=== PATIENT | female | born 1970 | race Caucasian/White ===

== ENCOUNTER 2025-04-14 17:06 | Inpatient (IN) | payer OTHER, MEDICAID ==
[~2025-04-14] VITALS: Ht 157.5 cm; Wt 50.2 kg
[2025-04-14 17:15] VITALS: PULSE 99; RESP 17; O2SAT 98
--- NOTE | 2025-04-14 17:31 | ED.PDOC ---
GI ASSESSMENT HPI Comments 55F BIBA w/ prior MHx of Liver Transplant in 2018(not taking meds for last 2 years), ascites:SHx of hernia Sx and the c/c of generalized weakness. Pt reports on having had dizziness, palpitations and 2 syncopal episodes all during the past week associated w/ the pt standing up from a seated position. Denies any symptoms at this time. Patient denies any CP, SOB, dizziness, numbness, weakness, tingling, fever, chills, or recent fall. Chief Complaint: General Weakness Time Seen by MD: 17:30 Reviewed Notes: Nurses Notes, Medications, Allergies Allergies: Coded Allergies: No Known Drug Allergy (Unverified Allergy, Unknown, 09/26/15) Home Meds Unable to Obtain Active Prescriptions or Reported Meds Information Source: Patient Mode of Arrival: EMS Timing: Days Duration: Since onset Prehospital treatment: None Quality: None Vomitus: None Stool: Normal Severity: Moderate Recent: None Recent Hx of: None Pain Location: RLQ (tenderness) Associated sign and symptoms: None Past Medical History Past Medical History (Other): Liver Transplant in 2018(not taking meds for past 2yrs), ascites Surgical History: Hernia Repair PATHOLOGY SECRETARY History: No Pertinent PATHOLOGY SECRETARY History Family History Family History: Reviewed,noncontributory to illness, Unknown Social History Smoker: Non-Smoker Alcohol: Denies ETOH Use Drugs: Denies Drug Use Lives In: Home Constitutional: denies: chills, diaphoresis, fatigue, fever, malaise, sweats, weakness, others EENTM: denies: blurred vision, double vision, ear bleeding, ear discharge, ear drainage, ear pain, ear ringing, eye pain, eye redness, hearing loss, mouth pain, mouth swelling, nasal discharge, nose bleeding, nose congestion, nose pain, photophobia, tearing, throat pain, throat swelling, voice changes, others Respiratory: denies: cough, hemoptysis, orthopnea, SOB at rest, shortness of b reath, SOB with excertion, stridor, wheezing, others Cardiovascular: reports: palpitations, syncope; denies: chest pain, dizzy spells, diaphoresis, Dyspnea on exertion, edema, irregular heart beat, left arm pain, lightheadedness, PND, others Gastrointestinal: denies: abdomen distended, abdominal pain, blood streaked bowels, constipated, diarrhea, dysphagia, difficulty swallowing, hematemesis, melena, nausea, poor appetite, poor fluid intake, rectal bleeding, rectal pain, vomiting, others Genitourinary: denies: abnormal vagina bleeding, burning, dyspareunia, dysuria, flank pain, frequency, hematuria, incontinence, pain, , vagina discharge, urgency, others Neurological: reports: dizziness; denies: fainting, headache, left sided n umbness, left sided weakness, numbness, paresthesia, pre-existing deficit, right sided numbness, right sided weakness, seizure, speech problems, tingling, tremors, weakness, others Musculoskeletal: denies: back pain, gout, joint pain, joint swelling, muscle pain, muscle stiffness, neck pain, others Integumetry: denies: bruises, change in color, change in hair/nails, dryness, laceration, lesions, lumps, rash, wounds, others Allergic/Immunocompromised: denies: Difficulty Healing, Frequent Infections, Hives, Itching, others Hematologic/Lymphatic: denies: anemia, blood clots, easy bleeding, easy bruising, swollen glands, others Endocrine: denies: excessive hunger, excessive sweating, excessive thirst, excessive urination, flushing, intolerance to cold, intolerance to heat, unexpl ained weight gain, unexplained weight loss, others Psychiatric: denies: anxiety, bipolar disorder, depression, hopeless, panic disorder, schizophrenia, sleepless, suicidal, others All Other Systems: Reviewed and Negative Physical Exam General Appearance: Moderate Distress, Normal HEENT: Normal ENT Inspection, Pale Conjuntivae (L), Pale Conjuntivae (R), PERRL/EOMI, Pharynx Normal, TMs Normal Neck: Full Range of Motion, Non-Tender, Normal, Normal Inspection Respiratory: Chest Non-Tender, Lungs Clear, No Accessory Muscle Use, No Respiratory Distress, Normal Breath Sounds Cardiovascular: No Edema, No JVD, No Murmur, No Gallop, Normal Peripheral Pulses, Regular Rate/Rhythm Breast Exam: Deferred Gastrointestinal: No Organomegaly, Non Tender, No Pulsatile Mass, Normal Bowel Sounds, Soft Genitalia: Deferred Pelvic: Deferred Rectal: Deferred Extremities: No calf tenderness, Normal capillary refill, Normal inspection, Normal range of motion, Non-tender, No pedal edema Musculoskeletal : Apperance: Normal Neurologic: Alert, journal entry audit clerk II-XII nml as Tested, No Motor Deficits, Normal Affect, Normal Mood, No Sensory Deficits Cerebellar Function: Normal Reflexes: Normal Skin: Dry, Normal Color, Warm Peripheral Pulses: 1+ carotid (R), 1+ carotid (L) Lymphatic: No Adenopathy Was a procedure done? Was a procedure done?: No GI differential Dx Differential Diagnosis: GI hemorrhage, Inflammatory BD, Ischemic Bowel, Dehydration, Electrolyte Imbalance, Hypovolemia, Renal Failure, Anemia X-Ray, Labs, Meds, VS Vital Signs Date Time Temp Pulse Resp B/P (MAP) Pulse Ox O2 Delivery O2 Flow Rate FiO2 04/14/25 19:00 97 12 122/78 (93) 100 04/14/25 18:00 98.1 104 14 120/76 (91) 95 98.1 04/14/25 17:20 101 04/14/25 17:15 99 17 113/73 (86) 97 04/14/25 17:15 99 17 98 Room Air* 0 21 04/14/25 17:06 98.0 98 16 87/51 100 98.0 Lab Test 04/14/25 17:34 Range/Units White Blood Count 4.2 L 4.4-10.8 10^3/uL Red Blood Count 1.73 L 4.0-5.20 10^6/uL Hemoglobin 6.0 *L 12.2-16.2 g/dL Hematocrit 16.9 L 36.0-46.0 % Mean Corpuscular Volume 97.7 80.0-100.0 fL Mean Corpuscular Hemoglobin 34.7 H 28.0-32.0 pg Mean Corpuscular Hemoglobin Concent 35.5 32.0-36.0 g/dL Red Cell Distribution Width 17.8 H 11.8-14.3 % Platelet Count 283 140-450 10^3/uL Mean Platelet Volume 6.1 L 6.9-10.8 fL Neutrophils (%) (Auto) 70.8 37.0-80.0 % Lymphocytes (%) (Auto) 17.3 10.0-50.0 % Monocytes (%) (Auto) 9.7 0.0-12.0 % Eosinophils (%) (Auto) 1.7 0.0-7.0 % Basophils (%) (Auto) 0.5 0.0-2.0 % Neutrophils # (Auto) 3.0 1.6-8.6 10 ^3/uL Lymphocytes # (Auto) 0.7 0.4-5.4 10 ^3/uL Monocytes # (Auto) 0.4 0-1.3 10 ^3/uL Eosinophils # (Auto) 0.1 0-0.8 10 ^3/uL Basophils # (Auto) 0 0-0.2 10 ^3/uL Nucleated Red Blood Cells 0.1 % Prothrombin Time 11.3 9.3-11.8 sec Prothrombin Time INR 1.07 0.9-1.15 Activated Partial Thromboplast Time 25.1 24.5-34.5 SEC Sodium Level 130 L 136-145 mmol/L Potassium Level 2.9 L 3.5-5.1 mmol/L Chloride Level 90 L 98-107 mmol/L Carbon Dioxide Level 24 20-31 mmol/L Anion Gap 16 H 5-15 Blood Urea Nitrogen 14 9-23 mg/dL Creatinine 1.47 H 0.550-1.02 mg/dL Glomerular Filtration Rate Calc 42 >90 mL/min BUN/Creatinine Ratio 9.5 L 10.0-20.0 Serum Glucose 98 74-106 mg/dL Calcium Level 7.1 L 8.7-10.4 mg/dL Magnesium Level 0.6 *L 1.6-2.6 mg/dL Total Bilirubin 0.7 0.2-1.0 mg/dL Aspartate Amino Transferase (AST) 53 H 13-40 U/L Alanine Aminotransferase (ALT) 14 7-40 U/L Alkaline Phosphatase 113 46-116 U/L Troponin I High Sensitivity < 3 L </=34 ng/L Total Protein 6.2 5.7-8.2 g/dL Albumin 4.0 3.2-4.8 g/dL Current Medications Medications (Trade) Dose Ordered Sig/Edith Route Start Time Stop Time Status Last Admin Sodium Chloride 500 ml @ 500 mls/hr Q1H ONCE IV 04/14/25 17:30 04/14/25 18:29 DC 04/14/25 17:45 Potassium Bicarbonate (Klor-Con/Ef) 50 meq ONCE ONCE PO 04/14/25 18:45 04/14/25 18:46 DC 04/14/25 20:27 Magnesium Sulfate/ Dextrose 100 ml @ 100 mls/hr Q1H IV 04/14/25 18:45 04/14/25 22:44 04/14/25 20:46 X-Ray, Labs, Meds, VS Comment Course in the emergency department patient came in because of generalized weakness and pallor and very dizzy when she stands up Patient has history of liver transplant hernia abdominal hernia and also resection of small bowel CBC 4200 with 70.8% neutrophils H&H 6.0 and 16.9 platelets normal INR 1.07 CMP potassium at 2.9 Sodium at 130 Chloride at 90 GFR 42 Calcium 7.1 Magnesium 0.[address] abdomen no acute finding except for colitis Patient will be admitted for further care Time of 1ST Reevaluation: 18:00 Reevaluation 1ST: Unchanged Patient Education/Counseling: Diagnosis, Treatment, Prognosis Family Education/Counseling: No Family Present SEPSIS Sepsis Screen Date sepsis recognized/suspect: Apr 14, 2025 Time Sepsis recognized/suspect: 1716 Recent Procedure: No On Antibiotic Therapy: No Respiratory Rate >20: No Heart Rate >90: No Temp<36 C (96.8 F) or >38.3 C: No SBP <90 or MAP <65 mmHG: Yes New Acute Mental Status Change: No Is the patient on CPAP, BIPAP,: No Physician Orders Chest Two Views Routine (04/14/25 17:22) Heplock Iv (04/14/25 17:22) Claims Director (04/14/25 17:22) Blood Pressure (04/14/25 17:22) Electrocardigram (04/14/25 17:22) Ct Ab Pel With Iv Con Only (04/14/25 17:22) Type And Screen (04/14/25 18:35) Magnesium Sulfate 1gm/100ml (04/14/25 18:45) Vital Signs Date Time Temp Pulse Resp B/P (MAP) Pulse Ox O2 Delivery O2 Flow Rate FiO2 04/14/25 19:00 97 12 122/78 (93) 100 04/14/25 18:00 98.1 104 14 120/76 (91) 95 98.1 04/14/25 17:20 101 04/14/25 17:15 99 17 113/73 (86) 97 04/14/25 17:15 99 17 98 Room Air* 0 21 04/14/25 17:06 98.0 98 16 87/51 100 98.0 Laboratory Tests Test 04/14/25 17:34 White Blood Count 4.2 10^3/uL (4.4-10.8) L Medications Medications Dose Ordered Sig/Edith Route Start Time Stop Time Status Last Admin Dose Admin Magnesium Sulfate/ Dextrose 100 ml @ 100 mls/hr Q1H IV 04/14/25 18:45 04/14/25 22:44 04/14/25 20:46 Potassium Bicarbonate 50 meq ONCE ONCE PO 04/14/25 18:45 04/14/25 18:46 DC 04/14/25 20:27 Sodium Chloride 500 ml @ 500 mls/hr Q1H ONCE IV 04/14/25 17:30 04/14/25 18:29 DC 04/14/25 17:45 Departure 1 Departure Time of Disposition: 19:01 Impression: Primary Impression: Severe anemia Additional Impressions: History of liver transplant Hypokalemia Hypomagnesemia Hypocalcemia Disposition: ADMITTED INPATIENT Condition: Guarded e-Prescriptions Unable to Obtain Active Prescriptions or Reported Meds Critical Care Note Critical Care Time?: No Stability Stability form required: Yes Heart Score Heart Score: Heart Score Response (Comments) Value History N/A 0 EKG N/A 0 Age 45-64 1 Risk Factors 1 or 2 risk factors 1 Troponin Normal limit 0 Total 2 I personally scribed for ANABELL DHALIWAL MD ([email or web address]) on 04/14/25 at 17:30. Electronically submitted by Justin Casas ([email or web address]). ANABELL DHALIWAL MD Apr 14, 2025 17:30
[2025-04-14] MEDS: SODIUM CHLORIDE 0.9% 500 ML IV ONE (17:45)
[2025-04-14 17:55] LABS: Hematocrit 16.9 % (36.0-46.0); Mean Corpuscular Hemoglobin 34.7 pg (28.0-32.0); Mean Corpuscular Volume 97.7 fL (80.0-100.0); Nucleated Red Blood Cells % 0.1 %
[2025-04-14 17:59] LABS: Hemoglobin 6.0 g/dL (12.2-16.2)
[2025-04-14 18:02] LABS: Alanine Aminotransferase 14 U/L (7-40); Albumin 4.0 g/dL (3.2-4.8); Alkaline Phosphatase 113 U/L (46-116); Anion Gap 16 (5-15); BUN/Creatinine Ratio 9.5 (10.0-20.0); Blood Urea Nitrogen 14 mg/dL (9-23); Carbon Dioxide 24 mmol/L (20-31); Glucose 98 mg/dL (74-106); INR 1.07 (0.9-1.15); Partial Thromboplastin Time 25.1 SEC (24.5-34.5); Prothrombin Time 11.3 sec (9.3-11.8); Total Protein 6.2 g/dL (5.7-8.2)
[2025-04-14 18:03] LABS: Bilirubin, Total 0.7 mg/dL (0.2-1.0)
[2025-04-14 18:04] LABS: Calcium 7.1 mg/dL (8.7-10.4); Chloride 90 mmol/L (98-107); Potassium 2.9 mmol/L (3.5-5.1); Sodium 130 mmol/L (136-145)
[2025-04-14 18:07] LABS: Magnesium 0.6 mg/dL (1.6-2.6)
[2025-04-14] MEDS ORDERED: MORPHINE SULFATE INJ 2 MG/ml SYRG IV PRN (19:45)
[2025-04-14] MEDS ORDERED: NITROGLYCERIN 0.4 MG SL TAB SL PRN (19:45)
[2025-04-14] MEDS: IOHEXOL 300 MG/ML 100ML BOTTLE IJ ONE (20:20)
[2025-04-14] MEDS: POTASSIUM EFFERVESENT TAB 25 MEQ PO ONE (20:27)
[2025-04-14] MEDS: MAGNESIUM SULFATE 1GM/100ML 100 ML IV SCH (20:28)
--- NOTE | 2025-04-14 21:00 | DVH ---
Exam: CT CT AB PEL WITH IV CON ONLY History: Patient had liver transplant no med for two years Comparison Study: None TECHNIQUE: Multidetector CT of the abdomen and pelvis with IV contrast. Axial, coronal and sagittal multiplanar reformats were obtained from the axial data set by the technologist. Radiation Dose Information: CT Dose: CTDI volume is 5.07 mGy. Dose-length product is 272.39 mGy*cm FINDINGS: Minimal bibasilar atelectasis. Partially visualized heart is unremarkable. Minimal intrahepatic biliary ductal dilatation. Postsurgical changes of prior liver transplant. Otherwise, liver, spleen, pancreas and adrenal glands are unremarkable. Mild left and [id number] Right-sided renal pelviectasis. No obstructing calculus is noted. 1.7 cm right renal upper pole cyst. Urinary bladder is mildly distended. Otherwise unremarkable. Uterus and adnexa are unremarkable. Mild gastric wall thickening with mild Wall thickening of Proximal small bowel loops. Fluid-filled nondistended mid and distal small bowel loops. Appendix is not definitely visualized. Wall thickening of the ascending colon with segmental decompression of the midtransverse colon. The remainder of the large bowel is unremarkable. postsurgical changes of the bowel over the right anterior midabdomen. No evidence of intraperitoneal free air or free fluid. No evidence of aortic aneurysm or dissection. Moderate atherosclerotic calcification of the aorta and bilateral iliacs. No significant lymphadenopathy. Soft tissues are unremarkable. Partially imaged bilateral breast implants. No evidence of acute osseous abnormalities. Chronic appearing mild loss of vertebral body height of the lower thoracic spine. Diffuse demineralization. IMPRESSION: Colitis involving the ascending colon. Mild wall thickening of the stomach and proximal small bowel loops with fluid- filled nondistended mid and distal small bowel loops. Correlate for gastroenteritis. Additional findings as above.
--- NOTE | 2025-04-14 21:02 | DVH ---
CHEST RADIOGRAPH Indication: Severe anemia Technique: Frontal and lateral view of the chest was obtained Comparison: None FINDINGS: Lines and Tubes: None Lungs: Clear Pleura: No effusion. No pneumothorax. Cardiomediastinal contours: Unremarkable Bones: Unremarkable IMPRESSION: No evidence of acute disease.
--- NOTE | 2025-04-14 22:41 | DVHHP2 ---
History of Present Illness Reason for Visit: Generalized weakness History of Present Illness 55-year-old female presents for evaluation of generalized weakness. The patient reports a one-week history of generalized weakness with associated dizziness, palpitations, tingling to upper and lower extremities. Patient has a history of liver transplant yet has not taken her immunosuppressant over the past two years due to not having insurance. Past Medical History Liver failure Past Surgical History Liver transplant, hernia repair Family History Noncontributory Smoke: No ALCOHOL: none Drugs: None Lives: with Family Review of Systems Review of Systems Review of systems are currently negative otherwise addressed in HPI. Allergies: Coded Allergies: No Known Drug Allergy (Unverified Allergy, Unknown, 09/26/15) Medications Current Medications Medications Dose Ordered Sig/Edith Route Start Time Stop Time Status Last Admin Dose Admin Magnesium Sulfate/ Dextrose 100 ml @ 100 mls/hr Q1H IV 04/14/25 18:45 04/14/25 22:44 04/14/25 20:46 100 MLS/HR Nitroglycerin 0.4 mg Q5MINP PRN SL 04/14/25 19:45 Morphine Sulfate 2 mg Q30M PRN IV 04/14/25 19:45 Exam Vital Signs Vital Signs Date Time Temp Pulse Resp B/P (MAP) Pulse Ox O2 Delivery O2 Flow Rate FiO2 04/14/25 21:22 98.3 95 14 118/78 (91) 96 98.3 04/14/25 19:40 Room Air* 0 21 Exam Gen: 55-year-old female in mild distress Skin: Warm, dry, normal color and texture, no rash. HEENT: Normocephalic atraumatic, mucous membranes moist and pink. Neck: Cervical and supraclavicular nodes normal without enlargement, trachea is midline, thyroid gland is normal without masses. Pulmonary: Clear to auscultation and percussion bilaterally. Cardiac: Regular rate and rhythm. No murmur Abdomen: Soft, nontender, nondistended, bowel sounds present all 4 quadrants, no guarding, no rigidity, no organomegaly. Extremities: No cyanosis, clubbing, no edema Neuro: Cranial nerves II through XII grossly intact, normal affect and speech, no focal motor deficits. Labs/Xrays ORDERING PHYSICIAN: ANABELL DHALIWAL MD PROCEDURE(s): ABPLIV - CT AB PEL WITH IV CON ONLY REASON: Patient had liver transplant no med for two years ORDER NUMBER(s): [id number], ACCESSION NUMBER(s): [id number] Exam: CT CT AB PEL WITH IV CON ONLY History: Patient had liver transplant no med for two years Comparison Study: None TECHNIQUE: Multidetector CT of the abdomen and pelvis with IV contrast. Axial, coronal and sagittal multiplanar reformats were obtained from the axial data set by the technologist. Radiation Dose Information: CT Dose: CTDI volume is 5.07 mGy. Dose-length product is 272.39 mGy*cm FINDINGS: Minimal bibasilar atelectasis. Partially visualized heart is unremarkable. Minimal intrahepatic biliary ductal dilatation. Postsurgical changes of prior liver transplant. Otherwise, liver, spleen, pancreas and adrenal glands are unremarkable. Mild left and [id number] Right-sided renal pelviectasis. No obstructing calculus is noted. 1.7 cm right renal upper pole cyst. Urinary bladder is mildly distended. Otherwise unremarkable. Uterus and adnexa are unremarkable. Mild gastric wall thickening with mild Wall thickening of Proximal small bowel loops. Fluid-filled nondistended mid and distal small bowel loops. Appendix is not definitely visualized. Wall thickening of the ascending colon with segmental decompression of the midtransverse colon. The remainder of the large bowel is unremarkable. postsurgical changes of the bowel over the right anterior midabdomen. No evidence of intraperitoneal free air or free fluid. No evidence of aortic aneurysm or dissection. Moderate atherosclerotic calcification of the aorta and bilateral iliacs. No significant lymphadenopathy. Soft tissues are unremarkable. Partially imaged bilateral breast implants. No evidence of acute osseous abnormalities. Chronic appearing mild loss of vertebral body height of the lower thoracic spine. Diffuse demineralization. IMPRESSION: Colitis involving the ascending colon. Mild wall thickening of the stomach and proximal small bowel loops with fluid- filled nondistended mid and distal small bowel loops. Correlate for gastroenteritis. Additional findings as above. RING PHYSICIAN: ANAEBLL DHALIWAL MD PROCEDURE(s): CXR2 - CHEST TWO VIEWS ROUTINE REASON: Severe anemia ORDER NUMBER(s): [id number], ACCESSION NUMBER(s): [id number] CHEST RADIOGRAPH Indication: Severe anemia Technique: Frontal and lateral view of the chest was obtained Comparison: None FINDINGS: Lines and Tubes: None Lungs: Clear Pleura: No effusion. No pneumothorax. Cardiomediastinal contours: Unremarkable Bones: Unremarkable IMPRESSION: No evidence of acute disease. Labs Test 04/14/25 17:34 Range/Units White Blood Count 4.2 L 4.4-10.8 10^3/uL Red Blood Count 1.73 L 4.0-5.20 10^6/uL Hemoglobin 6.0 *L 12.2-16.2 g/dL Hematocrit 16.9 L 36.0-46.0 % Mean Corpuscular Volume 97.7 80.0-100.0 fL Mean Corpuscular Hemoglobin 34.7 H 28.0-32.0 pg Mean Corpuscular Hemoglobin Concent 35.5 32.0-36.0 g/dL Red Cell Distribution Width 17.8 H 11.8-14.3 % Platelet Count 283 140-450 10^3/uL Mean Platelet Volume 6.1 L 6.9-10.8 fL Neutrophils (%) (Auto) 70.8 37.0-80.0 % Lymphocytes (%) (Auto) 17.3 10.0-50.0 % Monocytes (%) (Auto) 9.7 0.0-12.0 % Eosinophils (%) (Auto) 1.7 0.0-7.0 % Basophils (%) (Auto) 0.5 0.0-2.0 % Neutrophils # (Auto) 3.0 1.6-8.6 10 ^3/uL Lymphocytes # (Auto) 0.7 0.4-5.4 10 ^3/uL Monocytes # (Auto) 0.4 0-1.3 10 ^3/uL Eosinophils # (Auto) 0.1 0-0.8 10 ^3/uL Basophils # (Auto) 0 0-0.2 10 ^3/uL Nucleated Red Blood Cells 0.1 % Prothrombin Time 11.3 9.3-11.8 sec Prothrombin Time INR 1.07 0.9-1.15 Activated Partial Thromboplast Time 25.1 24.5-34.5 SEC Sodium Level 130 L 136-145 mmol/L Potassium Level 2.9 L 3.5-5.1 mmol/L Chloride Level 90 L 98-107 mmol/L Carbon Dioxide Level 24 20-31 mmol/L Anion Gap 16 H 5-15 Blood Urea Nitrogen 14 9-23 mg/dL Creatinine 1.47 H 0.550-1.02 mg/dL Glomerular Filtration Rate Calc 42 >90 mL/min BUN/Creatinine Ratio 9.5 L 10.0-20.0 Serum Glucose 98 74-106 mg/dL Calcium Level 7.1 L 8.7-10.4 mg/dL Magnesium Level 0.6 *L 1.6-2.6 mg/dL Total Bilirubin 0.7 0.2-1.0 mg/dL Aspartate Amino Transferase (AST) 53 H 13-40 U/L Alanine Aminotransferase (ALT) 14 7-40 U/L Alkaline Phosphatase 113 46-116 U/L Troponin I High Sensitivity < 3 L </=34 ng/L Total Protein 6.2 5.7-8.2 g/dL Albumin 4.0 3.2-4.8 g/dL SEPSIS Sepsis Screen Date sepsis recognized/suspect: Apr 14, 2025 Time Sepsis recognized/suspect: 1939 Recent Procedure: No On Antibiotic Therapy: No Respiratory Rate >20: No Heart Rate >90: Yes Temp<36 C (96.8 F) or >38.3 C: No SBP <90 or MAP <65 mmHG: No New Acute Mental Status Change: No Is the patient on CPAP, BIPAP,: No Physician Orders Chest Two Views Routine (04/14/25 17:22) Heplock Iv (04/14/25 17:22) Hand Coper (04/14/25 17:22) Blood Pressure (04/14/25 17:22) Electrocardigram (04/14/25 17:22) Ct Ab Pel With Iv Con Only (04/14/25 17:22) Type And Screen (04/14/25 18:35) Magnesium Sulfate 1gm/100ml (04/14/25 18:45) Admit (04/14/25 19:34) Nitroglycerin Sublingual (Ntrostat Subli (04/14/25 19:45) Morphine Sulfate Injection (04/14/25 19:45) Stat Ekg For Chest Pain (04/14/25 19:34) Notify Of Changes From Base (04/14/25 19:34) Examining Officer For 24 Hours (04/14/25 19:34) Emergency Dysrhythmia Protocol (04/14/25 19:34) Rhythm Strips Once Every Shift (04/14/25 19:34) Oxygen By Nasal Cannula (04/14/25 19:34) Vital Signs Date Time Temp Pulse Resp B/P (MAP) Pulse Ox O2 Delivery O2 Flow Rate FiO2 04/14/25 21:22 98.3 95 14 118/78 (91) 96 98.3 04/14/25 19:40 Room Air* 0 21 04/14/25 19:00 97 12 122/78 (93) 100 04/14/25 18:00 98.1 104 14 120/76 (91) 95 98.1 04/14/25 17:20 101 04/14/25 17:15 99 17 113/73 (86) 97 04/14/25 17:15 99 17 98 Room Air* 0 21 04/14/25 17:06 98.0 98 16 87/51 100 98.0 Laboratory Tests Test 04/14/25 17:34 White Blood Count 4.2 10^3/uL (4.4-10.8) L Medications Medications Dose Ordered Sig/Edith Route Start Time Stop Time Status Last Admin Dose Admin Magnesium Sulfate/ Dextrose 100 ml @ 100 mls/hr Q1H IV 04/14/25 18:45 04/14/25 22:44 04/14/25 20:46 100 MLS/HR Potassium Bicarbonate 50 meq ONCE ONCE PO 04/14/25 18:45 04/14/25 18:46 DC 04/14/25 20:27 50 MEQ Sodium Chloride 500 ml @ 500 mls/hr Q1H ONCE IV 04/14/25 17:30 04/14/25 18:29 DC 04/14/25 17:45 500 MLS/HR Assessment/Plan Assessment/Plan Assessment Symptomatic anemia Hypotension Electrolyte imbalance Plan Admit the patient to Med surge to the hospitalist Transfuse 2 units of packed red cells GI consultation Replete electrolytes Continue treatment per orders. Plan discussed with: Patient My Orders Orders - MYRA DASH Procedure Category Date Status Time Admit ADMIT 04/14/25 Transmitted 19:34 Nitroglycerin PHA 04/14/25 In Process Sublingual (Ntrostat 19:45 Morphine Sulfate PHA 04/14/25 In Process Injection 19:45 Stat Ekg For Chest THI 04/14/25 In Process Pain 19:34 Notify Md Of Changes B[facility] 04/14/25 In Process From Base 19:34 Examining Officer For BANNER 04/14/25 In Process 24 Hours 19:34 Emergency Dysrhythmia [facility] 04/14/25 In Process Protocol 19:34 Rhythm Strips Once [facility]ANNER 04/14/25 In Process Every Shift 19:34 Oxygen By Nasal 04/14/25 Transmitted Cannula 19:34 Date of Service: Apr 14, 2025 Billing Provider: MYRA DASH Common Visit Codes: [id number] INP/OBS CARE (MOD) MYRA DASH Apr 14, 2025 22:41
[2025-04-14 22:46] VITALS: BP 141/94; PULSE 96; RESP 13; TEMP 98.4
[2025-04-14 23:07] VITALS: BP 125/80; PULSE 93; RESP 13; TEMP 98.5
[2025-04-15] VITALS (13 sets, daily range): BP systolic 92–166; BP diastolic 56–104; PULSE 69–100; RESP 15–20; TEMP 97.6–98.6; O2SAT 97–100
[2025-04-15 11:42] LABS: Hematocrit 28.2 % (36.0-46.0); Hemoglobin 9.8 g/dL (12.2-16.2); Mean Corpuscular Hemoglobin 32.7 pg (28.0-32.0); Mean Corpuscular Volume 94.3 fL (80.0-100.0); Nucleated Red Blood Cells % 0.0 %
[2025-04-15 11:55] LABS: Anion Gap 12 (5-15); Carbon Dioxide 26 mmol/L (20-31)
[2025-04-15 11:58] LABS: Calcium 7.2 mg/dL (8.7-10.4); Chloride 94 mmol/L (98-107); Potassium 3.5 mmol/L (3.5-5.1); Sodium 132 mmol/L (136-145)
[2025-04-15 12:00] LABS: BUN/Creatinine Ratio 7.9 (10.0-20.0); Blood Urea Nitrogen 9 mg/dL (9-23); Glucose 106 mg/dL (74-106)
[2025-04-15 12:01] LABS: Magnesium 2.0 mg/dL (1.6-2.6)
[2025-04-15] MEDS: MORPHINE SULFATE INJ 2 MG/ml SYRG IV ONE (12:44)
--- NOTE | 2025-04-15 12:51 | DVHINCON2 ---
GI Consult Consult Note GI consult note Date of Consultation: 04/15/2025 Chief Complaint: Severe anemia Referring Physician: Malro ELLIS H&P: 55-year-old female admitted for evaluation of generalized weakness. 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 Patient has history of anemia and has blood transfusions in 2018. Status post EGD colonoscopy in 2018 with banding of varices Patient admits to drinking alcohol again, heavy per patient, quit one-week ago Last menstrual cycle when patient was 41 years old Past Medical History: Liver cirrhosis secondary to alcohol use Past Surgical History: Liver transplant, hernia repair Social History: NO smoking,+ heavy drinking ETOH Family History: Noncontributory Review of Systems: Constitutional: no fever, chill, weight loss HEENT: Headache Heart: no chest pain, no chest pressure Lung: no cough, no dyspnea with exertion Abdomen: see HPI Physical exam: General: NAD, AAOX3 Chest: lung bragg clear to auscultation Heart: RRR, no murmur Abdomen: non-distended, no tenderness to palpation, +BS Labs: Labs Test 04/15/25 12:15 04/15/25 11:00 04/14/25 17:34 Range/Units White Blood Count 3.5 L 4.4-10.8 10^3/uL Red Blood Count 2.99 L 4.0-5.20 10^6/uL Hemoglobin 9.8 #L 12.2-16.2 g/dL Hematocrit 28.2 #L 36.0-46.0 % Mean Corpuscular Volume 94.3 80.0-100.0 fL Mean Corpuscular Hemoglobin 32.7 H 28.0-32.0 pg Mean Corpuscular Hemoglobin Concent 34.7 32.0-36.0 g/dL Red Cell Distribution Width 16.4 H 11.8-14.3 % Platelet Count 219 140-450 10^3/uL Mean Platelet Volume 6.0 L 6.9-10.8 fL Neutrophils (%) (Auto) 72.8 37.0-80.0 % Lymphocytes (%) (Auto) 14.9 10.0-50.0 % Monocytes (%) (Auto) 10.6 0.0-12.0 % Eosinophils (%) (Auto) 1.1 0.0-7.0 % Basophils (%) (Auto) 0.6 0.0-2.0 % Neutrophils # (Auto) 2.6 1.6-8.6 10 ^3/uL Lymphocytes # (Auto) 0.5 0.4-5.4 10 ^3/uL Monocytes # (Auto) 0.4 0-1.3 10 ^3/uL Eosinophils # (Auto) 0 0-0.8 10 ^3/uL Basophils # (Auto) 0 0-0.2 10 ^3/uL Nucleated Red Blood Cells 0.0 % Sodium Level 132 L 136-145 mmol/L Potassium Level 3.5 3.5-5.1 mmol/L Chloride Level 94 L 98-107 mmol/L Carbon Dioxide Level 26 20-31 mmol/L Anion Gap 12 5-15 Blood Urea Nitrogen 9 9-23 mg/dL Creatinine 1.14 H 0.550-1.02 mg/dL Glomerular Filtration Rate Calc 58 >90 mL/min BUN/Creatinine Ratio 7.9 L 10.0-20.0 Serum Glucose 106 74-106 mg/dL Calcium Level 7.2 L 8.7-10.4 mg/dL Magnesium Level 2.0 # 1.6-2.6 mg/dL Prothrombin Time 11.3 9.3-11.8 sec Prothrombin Time INR 1.07 0.9-1.15 Activated Partial Thromboplast Time 25.1 24.5-34.5 SEC Total Bilirubin 0.7 0.2-1.0 mg/dL Aspartate Amino Transferase (AST) 53 H 13-40 U/L Alanine Aminotransferase (ALT) 14 7-40 U/L Alkaline Phosphatase 113 46-116 U/L Troponin I High Sensitivity < 3 L </=34 ng/L Total Protein 6.2 5.7-8.2 g/dL Albumin 4.0 3.2-4.8 g/dL Imaging: CT abdomen pelvis IMPRESSION: Colitis involving the ascending colon. Mild wall thickening of the stomach and proximal small bowel loops with fluid- filled nondistended mid and distal small bowel loops. Correlate for gastroenteritis. Additional findings as above. Assessment: Severe anemia Status post liver transplant Liver cirrhosis Heavy alcohol use Noncompliant with medications Diarrhea Possible gastroenteritis Abnormal findings on CT possible colitis Plan: Discussed with Dr. Gonzales Monitor hemoglobin transfuse if hemoglobin less than seven Protonix Stool for occult blood, WBC, bacterial culture, C diff Flagyl IV DC alcohol discussed extensively Stressed importance of follow-up with liver transplant team at [place] We will continue to monitor patient Thank you for this consult Date of Service: Apr 15, 2025 Billing Provider: JENNIFER JUNG Common Visit Codes: CONSULT ONLY Consultation Codes: [id number] CONSULT <60MIN JENNIFER JUNG Apr 15, 2025 12:51
--- NOTE | 2025-04-15 14:46 | DVHPN2 ---
Reviewed: Care Plan, H&P, Labs, Medications, Previous Orders, Radiology Changes from previous H/P or p: No Changes Objective Vitals Vital Signs Date Time Temp Pulse Resp B/P (MAP) Pulse Ox O2 Delivery O2 Flow Rate FiO2 04/15/25 12:44 85 16 166/104 04/15/25 09:00 98.0 100 98.0 04/15/25 08:00 Room Air* 0 21 Intake/Output Intake and Output 04/15/25 06:59 Intake Total 1700 ml Output Total 200 ml Balance 1500 ml Intake IV Total 200 ml Blood Product 600 ml Packed Cells 600 ml Other 300 ml Output Urine Total 200 ml Medications Current Medications Medications Dose Ordered Sig/Edith Route Start Time Stop Time Status Last Admin Dose Admin Nitroglycerin 0.4 mg Q5MINP PRN SL 04/14/25 19:45 Morphine Sulfate 2 mg Q30M PRN IV 04/14/25 19:45 Metronidazole 100 ml @ 100 mls/hr Q8HR IV 04/15/25 14:00 UNV Laboratory Results Laboratory Tests 04/15/25 11:00 Chemistry Test 04/14/25 17:34 04/15/25 11:00 Albumin 4.0 g/dL (3.2-4.8) Calcium Level 7.1 mg/dL (8.7-10.4) L 7.2 mg/dL (8.7-10.4) L Magnesium Level 0.6 mg/dL (1.6-2.6) *L 2.0 mg/dL (1.6-2.6) # Total Protein 6.2 g/dL (5.7-8.2) Coagulation Test 04/14/25 17:34 Prothrombin Time 11.3 sec (9.3-11.8) Prothrombin Time INR 1.07 (0.9-1.15) Activated Partial Thromboplast Time 25.1 SEC (24.5-34.5) LFT Test 04/14/25 17:34 Alanine Aminotransferase (ALT) 14 U/L (7-40) Alkaline Phosphatase 113 U/L (46-116) Aspartate Amino Transferase (AST) 53 U/L (13-40) H Total Bilirubin 0.7 mg/dL (0.2-1.0) Labs and/or images reviewed: Labs reviewed by me, Image(s) reviewed by me Assessment/Plan Assessment/Plan Acute generalized weakness Severe symptomatic anemia hemoglobin 6.0 improved to 9.8 after 2 units RBC transfusion, GI consult appreciated stool for occult blood neg History of cirrhosis of liver status post liver transplant Acute hypokalemia potassium 2.9: Replace potassium Hypomagnesemia magnesium 0.6 improved to 2.0 after Mag replacement Acute Colitis: Arnel Mayo Time spent 55 minutes RN Leslie at bed side Plan discussed with: Patient Date of Service: Apr 15, 2025 Billing Provider: JAMIE JUNG MD Common Visit Codes: [id number] INP/OBS CARE(HIGH) JAMIE JUNG MD Apr 15, 2025 14:46
[2025-04-15] MEDS: MAGNESIUM SULFATE 1GM/100ML 100 ML IV SCH (16:04)
[2025-04-15] MEDS: POTASSIUM EFFERVESENT TAB 25 MEQ PO ONE (16:05)
[2025-04-16] VITALS (8 sets, daily range): BP systolic 118–144; BP diastolic 80–92; PULSE 72–93; RESP 16–17; TEMP 97.7–99; O2SAT 96–100
[2025-04-16 06:54] LABS: Hematocrit 27.2 % (36.0-46.0); Hemoglobin 9.6 g/dL (12.2-16.2); Mean Corpuscular Hemoglobin 32.8 pg (28.0-32.0); Mean Corpuscular Volume 93.4 fL (80.0-100.0); Nucleated Red Blood Cells % 0.3 %
[2025-04-16 07:34] LABS: Alanine Aminotransferase 19 U/L (7-40); Albumin 3.6 g/dL (3.2-4.8); Alkaline Phosphatase 112 U/L (46-116); Anion Gap 11 (5-15); BUN/Creatinine Ratio 5.9 (10.0-20.0); Carbon Dioxide 27 mmol/L (20-31); Glucose 96 mg/dL (74-106); Potassium 3.9 mmol/L (3.5-5.1); Total Protein 5.8 g/dL (5.7-8.2)
[2025-04-16 07:35] LABS: Bilirubin, Total 0.6 mg/dL (0.2-1.0)
[2025-04-16 07:38] LABS: Blood Urea Nitrogen 6 mg/dL (9-23); Calcium 7.8 mg/dL (8.7-10.4); Chloride 97 mmol/L (98-107); Sodium 135 mmol/L (136-145)
--- NOTE | 2025-04-16 10:47 | DVHPN2 ---
Reviewed: Care Plan, H&P, Labs, Medications, Previous Orders, Radiology Changes from previous H/P or p: No Changes Objective Vitals Vital Signs Date Time Temp Pulse Resp B/P (MAP) Pulse Ox O2 Delivery O2 Flow Rate FiO2 04/16/25 08:59 97.7 78 17 139/88 (105) 99 97.7 04/15/25 20:00 Room Air* 0 21 Intake/Output Intake and Output 04/16/25 07:00 Intake Total 2025 ml Balance 2025 ml Intake Oral 1475 ml IV Total 550 ml # Voids 6 # Bowel Movements 4 Medications Current Medications Medications Dose Ordered Sig/Edith Route Start Time Stop Time Status Last Admin Dose Admin Nitroglycerin 0.4 mg Q5MINP PRN SL 04/14/25 19:45 Morphine Sulfate 2 mg Q30M PRN IV 04/14/25 19:45 Metronidazole 100 ml @ 100 mls/hr Q8HR IV 04/15/25 14:00 04/16/25 05:03 100 MLS/HR Ceftriaxone Sodium 50 ml @ 100 mls/hr DAILY@09 IV 04/16/25 09:00 04/16/25 08:52 100 MLS/HR Laboratory Results Laboratory Tests 04/16/25 06:21 Chemistry Test 04/15/25 11:00 04/16/25 06:21 Calcium Level 7.2 mg/dL (8.7-10.4) L 7.8 mg/dL (8.7-10.4) L Magnesium Level 2.0 mg/dL (1.6-2.6) # Albumin 3.6 g/dL (3.2-4.8) Total Protein 5.8 g/dL (5.7-8.2) LFT Test 04/16/25 06:21 Alanine Aminotransferase (ALT) 19 U/L (7-40) Alkaline Phosphatase 112 U/L (46-116) Aspartate Amino Transferase (AST) 70 U/L (13-40) H Total Bilirubin 0.6 mg/dL (0.2-1.0) Labs and/or images reviewed: Labs reviewed by me, Image(s) reviewed by me Assessment/Plan Assessment/Plan Acute generalized weakness Severe symptomatic anemia hemoglobin 6.0 improved to 9.8 after 2 units RBC transfusion, GI consult appreciated stool for occult blood neg History of cirrhosis of liver status post liver transplant Acute hypokalemia potassium 2.9: Improved to 3.9 after potassium replacement Hypomagnesemia magnesium 0.6 improved to 2.0 after Mag replacement Acute Colitis: Rocephin Flagyl Time spent 55 minutes TESSA Burnett at bed side Plan discussed with: Patient My Orders Orders - JAMIE JUNG MD Procedure Category Date Status Time Ceftriaxone 1gm/50ml PHA 04/16/25 In Process (Rocephin) 09:00 Complete Blood Count LAB 04/17/25 Verified 04:00 Comprehensive LAB 04/17/25 Verified Metabolic Panel 04:00 Date of Service: Apr 16, 2025 Billing Provider: JAMIE JUNG MD Common Visit Codes: [id number] INP/OBS CARE(HIGH) JAMIE JUNG MD Apr 16, 2025 10:47
[2025-04-16] MEDS: HYDROcodone-ACET 5/325MG TAB PO PRN (12:19)
--- NOTE | 2025-04-16 17:17 | DVHPN2 ---
Progress Note Date Seen: Apr 16, 2025 Resident Creating Document: JENY COLLINS RESIDENT Medical Necessity Reason Pt with a Central, PICC or Fol: No Subjective Patient reports: No new complaints, Feels better Objective vital signs Vital Sign Date Time Temp Pulse Resp B/P (MAP) Pulse Ox O2 Delivery O2 Flow Rate FiO2 04/16/25 16:34 98.9 81 17 133/92 (106) 100 98.9 04/16/25 08:00 Room Air* 0 21 Total Intake and Output 04/15/25 04/15/25 04/16/25 15:00 23:00 07:00 Intake Total 1050 ml 975 ml Balance 1050 ml 975 ml medications Current Medications Medications Dose Ordered Sig/Edith Route Start Time Stop Time Status Last Admin Dose Admin Nitroglycerin 0.4 mg Q5MINP PRN SL 04/14/25 19:45 Morphine Sulfate 2 mg Q30M PRN IV 04/14/25 19:45 Metronidazole 100 ml @ 100 mls/hr Q8HR IV 04/15/25 14:00 04/16/25 14:02 100 MLS/HR Ceftriaxone Sodium 50 ml @ 100 mls/hr DAILY@09 IV 04/16/25 09:00 04/16/25 08:52 100 MLS/HR Acetaminophen/ Hydrocodone Bitart 1 tab Q6HPRN PRN PO 04/16/25 12:00 04/16/25 12:19 1 TAB Examination Patient lying in bed, in no acute distress General: Well-built, afebrile, palor, mucosae are moist Cardiovascular: Regular S1 and S2. No murmurs, gallops or rubs. No JVD elevation. No pedal edema Respiratory: Normal B/L air entry on room air. Clear lung sounds on auscultation Abdomen: Soft, nontender, nondistended, normoactive bowel sounds, no rebound tenderness, no organomegaly, no masses Genitourinary: Deferred MSK/skin: Mobilizes 4 limbs. Skin is dry and warm laboratory and microbiology Laboratory Tests 04/16/25 06:21 Test 04/16/25 06:21 Range/Units Serum Glucose 96 74-106 mg/dL Microbiology Date/Time Source Procedure Growth Status 04/15/25 12:15 Stool Stool Culture - Preliminary Resulted 04/15/25 12:15 Stool Shiga Toxin I & II Pending Resulted Labs and/or images reviewed: Labs reviewed by me, Image(s) reviewed by me Problem List/Assessment/Plan Problem List/Assessment/Plan Severe anemia status post blood transfusion Status post liver transplant Liver cirrhosis Heavy alcohol use Noncompliant with medications Diarrhea Possible gastroenteritis Acute kidney injury CT abdomen shows Colitis involving the ascending colon.Mild wall thickening of the stomach and proximal small bowel loops with fluid-filled nondistended mid and distal small bowel loops. Correlate for gastroenteritis. Plan: Recommendation Status post 2 packed RBC transfusion. Monitor hemoglobin transfuse if hemoglobin less than seven Protonix 40 mg p.o. daily Stool occult negative, stool WBC negative, prelim stool culture negative DC alcohol discussed extensively Stressed importance of follow-up with liver transplant team at [place] . Plan discussed with patient in which all questions have been answered Case discussed Dr. Gonzales Plan discussed with: Patient CC Plasma Assessment Blood Product Administration S: [id number] JENY COLLINS RESIDENT Apr 16, 2025 17:17
[2025-04-16] MEDS: PANTOPRAZOLE 40 MG TAB PO ONE (17:50)
[2025-04-17 01:00] VITALS: BP 147/94; PULSE 71; RESP 16; TEMP 97.9; O2SAT 100
[2025-04-17 05:00] VITALS: BP 152/92; PULSE 71; RESP 16; TEMP 98.1; O2SAT 99
[2025-04-17] MEDS: PANTOPRAZOLE 40 MG TAB PO SCH (05:58)
[2025-04-17 06:29] LABS: Hematocrit 25.7 % (36.0-46.0); Hemoglobin 9.1 g/dL (12.2-16.2); Mean Corpuscular Hemoglobin 33.1 pg (28.0-32.0); Mean Corpuscular Volume 93.4 fL (80.0-100.0); Nucleated Red Blood Cells % 0.2 %
[2025-04-17 06:46] LABS: Alanine Aminotransferase 13 U/L (7-40); Albumin 3.5 g/dL (3.2-4.8); Alkaline Phosphatase 103 U/L (46-116); Anion Gap 9 (5-15); Carbon Dioxide 28 mmol/L (20-31); Glucose 83 mg/dL (74-106); Magnesium 2.1 mg/dL (1.6-2.6); Potassium 4.1 mmol/L (3.5-5.1)
[2025-04-17 06:47] LABS: Bilirubin, Total 0.5 mg/dL (0.2-1.0)
[2025-04-17 06:48] LABS: BUN/Creatinine Ratio 5.0 (10.0-20.0); Blood Urea Nitrogen < 5 mg/dL (9-23); Calcium 8.5 mg/dL (8.7-10.4); Chloride 98 mmol/L (98-107); Sodium 135 mmol/L (136-145); Total Protein 5.6 g/dL (5.7-8.2)
[2025-04-17 08:00] VITALS: RESP 18
[2025-04-17] MEDS ORDERED: FERR-7 PO (08:30)
[2025-04-17] MEDS ORDERED: PANT40T PO (08:30)
[2025-04-17] MEDS ORDERED: LEVO500T91 PO (08:31)
[2025-04-17] MEDS ORDERED: METR-344 PO (08:31)
--- NOTE | 2025-04-17 08:32 | DVHPN2 ---
Reviewed: Care Plan, H&P, Labs, Medications, Previous Orders, Radiology Changes from previous H/P or p: No Changes Objective Vitals Vital Signs Date Time Temp Pulse Resp B/P (MAP) Pulse Ox O2 Delivery O2 Flow Rate FiO2 04/17/25 05:00 98.1 71 16 152/92 (112) 99 98.1 04/16/25 20:00 Room Air* 0 21 Intake/Output Intake and Output 04/17/25 07:00 Intake Total 2030 ml Balance 2030 ml Intake Oral 1880 ml IV Total 150 ml # Voids 6 # Bowel Movements 2 Medications Current Medications Medications Dose Ordered Sig/Edith Route Start Time Stop Time Status Last Admin Dose Admin Nitroglycerin 0.4 mg Q5MINP PRN SL 04/14/25 19:45 Morphine Sulfate 2 mg Q30M PRN IV 04/14/25 19:45 Metronidazole 100 ml @ 100 mls/hr Q8HR IV 04/15/25 14:00 04/17/25 05:59 100 MLS/HR Ceftriaxone Sodium 50 ml @ 100 mls/hr DAILY@09 IV 04/16/25 09:00 04/16/25 08:52 100 MLS/HR Acetaminophen/ Hydrocodone Bitart 1 tab Q6HPRN PRN PO 04/16/25 12:00 04/16/25 12:19 1 TAB Pantoprazole Sodium 40 mg DAILY@0600 PO 04/17/25 06:00 04/17/25 05:58 40 MG Laboratory Results Laboratory Tests 04/17/25 04:35 Chemistry Test 04/17/25 04:35 Albumin 3.5 g/dL (3.2-4.8) Calcium Level 8.5 mg/dL (8.7-10.4) L Magnesium Level 2.1 mg/dL (1.6-2.6) Total Protein 5.6 g/dL (5.7-8.2) L LFT Test 04/17/25 04:35 Alanine Aminotransferase (ALT) 13 U/L (7-40) Alkaline Phosphatase 103 U/L (46-116) Aspartate Amino Transferase (AST) 31 U/L (13-40) Total Bilirubin 0.5 mg/dL (0.2-1.0) Microbiology Microbiology Date/Time Source Procedure Growth Status 04/15/25 12:15 Stool Stool Culture - Preliminary Resulted 04/15/25 12:15 Stool Shiga Toxin I & II Pending Resulted Labs and/or images reviewed: Labs reviewed by me, Image(s) reviewed by me Assessment/Plan Assessment/Plan Acute generalized weakness Severe symptomatic anemia hemoglobin 6.0 improved to 9.8 after 2 units RBC transfusion, GI consult appreciated stool for occult blood neg History of cirrhosis of liver status post liver transplant Acute hypokalemia potassium 2.9: Improved to 3.9 after potassium replacement Hypomagnesemia magnesium 0.6 improved to 2.0 after Mag replacement Acute Colitis: Rocephin Flagyl Time spent 55 minutes We will for occult blood negative Stool cultures negative GI cleared for discharge Advised to follow up with the the liver transplant team at [place] Plan discussed with: Patient My Orders Orders - JAMIE JUNG MD Procedure Category Date Status Time Hydrocodone-Acet PHA 04/16/25 In Process 5/325mg Tab ([place] 12:00 Comprehensive LAB 04/18/25 Verified Metabolic Panel 05:00 Comprehensive LAB 04/19/25 Verified Metabolic Panel 05:00 Comprehensive LAB 04/20/25 Verified Metabolic Panel 05:00 Complete Blood Count LAB 04/18/25 Verified 05:00 Date of Service: Apr 17, 2025 Billing Provider: JAMIE JUNG MD Common Visit Codes: [id number] INP/OBS CARE(HIGH) JAMIE JUNG MD Apr 17, 2025 08:32
--- NOTE | 2025-04-17 08:36 | DVHDS2 ---
Discharge Summary Date of Admission Apr 14, 2025 at 19:34 Date of Discharge: Apr 17, 2025 Admitting Diagnosis Abdominal pain generalized weakness Wounds: None Labs/Diagnostic Data: Laboratory Results Test 04/17/25 04:35 04/15/25 12:15 04/14/25 17:34 White Blood Count 3.2 10^3/uL (4.4-10.8) Red Blood Count 2.75 10^6/uL (4.0-5.20) Hemoglobin 9.1 g/dL (12.2-16.2) Hematocrit 25.7 % (36.0-46.0) Mean Corpuscular Volume 93.4 fL (80.0-100.0) Mean Corpuscular Hemoglobin 33.1 pg (28.0-32.0) Mean Corpuscular Hemoglobin Concent 35.4 g/dL (32.0-36.0) Red Cell Distribution Width 16.6 % (11.8-14.3) Platelet Count 262 10^3/uL (140-450) Mean Platelet Volume 6.2 fL (6.9-10.8) Neutrophils (%) (Auto) 57.9 % (37.0-80.0) Lymphocytes (%) (Auto) 25.2 % (10.0-50.0) Monocytes (%) (Auto) 11.1 % (0.0-12.0) Eosinophils (%) (Auto) 4.9 % (0.0-7.0) Basophils (%) (Auto) 0.9 % (0.0-2.0) Neutrophils # (Auto) 1.9 10 ^3/uL (1.6-8.6) Lymphocytes # (Auto) 0.8 10 ^3/uL (0.4-5.4) Monocytes # (Auto) 0.4 10 ^3/uL (0-1.3) Eosinophils # (Auto) 0.2 10 ^3/uL (0-0.8) Basophils # (Auto) 0 10 ^3/uL (0-0.2) Nucleated Red Blood Cells 0.2 % Sodium Level 135 mmol/L (136-145) Potassium Level 4.1 mmol/L (3.5-5.1) Chloride Level 98 mmol/L (98-107) Carbon Dioxide Level 28 mmol/L (20-31) Anion Gap 9 (5-15) Blood Urea Nitrogen < 5 mg/dL (9-23) Creatinine 1.00 mg/dL (0.550-1.02) Glomerular Filtration Rate Calc 67 mL/min (>90) BUN/Creatinine Ratio 5.0 (10.0-20.0) Serum Glucose 83 mg/dL (74-106) Calcium Level 8.5 mg/dL (8.7-10.4) Magnesium Level 2.1 mg/dL (1.6-2.6) Total Bilirubin 0.5 mg/dL (0.2-1.0) Aspartate Amino Transferase (AST) 31 U/L (13-40) Alanine Aminotransferase (ALT) 13 U/L (7-40) Alkaline Phosphatase 103 U/L (46-116) Total Protein 5.6 g/dL (5.7-8.2) Albumin 3.5 g/dL (3.2-4.8) Stool Occult Blood Negative (Negative) Stool Occult Blood Sample #3 (Negative) Stool for White Cells None seen Prothrombin Time 11.3 sec (9.3-11.8) Prothrombin Time INR 1.07 (0.9-1.15) Activated Partial Thromboplast Time 25.1 SEC (24.5-34.5) Troponin I High Sensitivity < 3 ng/L (</=34) Other Laboratory Tests 04/17/25 04:35 Brief Hx & Hospital Course: 55-year-old with cirrhosis of liver status post liver transplant two years ago at [facility] never followed up came in complaining of generalized weakness found to have hemoglobin 6.0 improved to 9.8 after 2 units RBC transfusion GI consult by Dr. Shara Gonzales tool for occult blood negative stool cultures negative hypokalemia and hypomagnesemia resolved with replacement patient also had acute colitis treated with Rocephin and Flagyl GI cleared for discharge patient will be discharged home on Levaquin Flagyl pantoprazole iron tablets she will follow up with the liver transplant Dr[facility]erminia [facility] Consults/Reason for consult GI Dr. Shara Gonzales Operations or Procedures CT abdomen pelvis without contrast RBC transfusion Condition at Discharge: Fair Final Diagnosis/Problems List Acute generalized weakness Severe symptomatic anemia hemoglobin 6.0 improved to 9.8 after 2 units RBC transfusion, GI consult appreciated stool for occult blood neg History of cirrhosis of liver status post liver transplant Acute hypokalemia potassium 2.9: Improved to 3.9 after potassium replacement Hypomagnesemia magnesium 0.6 improved to 2.0 after Mag replacement Acute Colitis: Rocreubenn Maria Esther Discharge Disposition: Home Discharge Instruct/Medications Diet: Regular Activity: Light activity Follow Up/Referral: Continue all your previous home medications Use new medications as prescribed Follow up with your liver transplant DrHerminia at [facility] Medications: Levaquin Flagyl Pantoprazole Iron Transmitted to pharmacy Scheduled Ferrous Sulfate (Iron), 325 MG PO BID Levofloxacin Hemihydrate (Levaquin 500 Mg), 1 TAB PO DAILY Metronidazole (Flagyl), 1 TAB PO TID Pantoprazole Sodium Sesquihydr (Pantoprazole Sodium), 40 MG PO BID 35 (Time taken for discharge summary 35 mts) Discharge Statement: "Patient was advised to return to the ER or call 911 if any headaches, dizziness, shortness of breath, chest pain, abdominal pain, bleeding, fevers, or worsening of medical condition. Patient was counseled about treatment plan, medications, possible side effects, patientverbalized understanding. All questions were answered to the best of my ability. This discharge took greater then 30 minutes in planning, reviewing documentation, counseling the patient, and discussing with other team members." ASSESSMENT ASSESSMENT Hospital Course Improved marginally Assessment Acute generalized weakness Severe symptomatic anemia hemoglobin 6.0 improved to 9.8 after 2 units RBC transfusion, GI consult appreciated stool for occult blood neg History of cirrhosis of liver status post liver transplant Acute hypokalemia potassium 2.9: Improved to 3.9 after potassium replacement Hypomagnesemia magnesium 0.6 improved to 2.0 after Mag replacement Acute Colitis: Lalihishara Mayo Date of Service: Apr 17, 2025 Billing Provider: JAMIE JUNG MD Common Visit Codes: [id number] DISCH DAY >30min JAMIE JUNG MD Apr 17, 2025 08:36
[2025-04-17 09:00] VITALS: BP 137/83; PULSE 94; RESP 16; TEMP 98.6; O2SAT 100
[2025-04-17 09:10] VITALS: TEMP 37
== END 2025-04-17 09:55 | disposition home or self-care (01) | DRG 812 ==
LOC: EDBD 17:06 → ER 17:06 → OVERFLOW 19:34 → TELE-WESTW 23:29
PROVIDERS: ADMIT Family Medicine; ATTEND Family Medicine
PROC: 30233N1 Transfusion of Nonautologous Red Blood Cells into Peripheral Vein, Percutaneous Approach (ICD-10-PCS; principal; 2025-04-14)
DX: D64.9 Anemia, unspecified (principal); E83.51 Hypocalcemia; Z94.4 Liver transplant status; K52.9 Noninfective gastroenteritis and colitis, unspecified; I95.9 Hypotension, unspecified; E87.6 Hypokalemia; E83.42 Hypomagnesemia; Z91.148 Patient's other noncompliance with medication regimen for other reason; Z79.899 Other long term (current) drug therapy
CPT/HCPCS: 36415; 71046; 74177; 80048; 80053; 82270; 83735; 84484; 85025; 85048; 85610; 85730; 86850; 86900; 86901; 86920; 87045; 87427; 96360; 96361; G0378; J3490

== ENCOUNTER 2025-04-21 10:46 | Inpatient (IN) | payer MEDICAID, OTHER ==
[~2025-04-21] VITALS: Ht 157.5 cm; Wt 52.9 kg
[~2025-04-21 10:46] MED LIST: FERR-7 PO; LEVO500T91 PO; METR-344 PO; PANT40T PO
--- NOTE | 2025-04-21 11:14 | ED.PDOC ---
HPI (NEURO) HPI Comments 55y F who presents to the ED via EMS for chief complaint of generalized weakness. EMS states pt has been having weakness, nausea, shortness of breath and generalized malaise for the past few days. Pt states she was at [facility] week for similar symptoms and was hospitalized and given 2 units of blood and dx with anemia and discharged. Pt states she is having similar symptoms now and called EMS. EMS notes pt has stable vitals upon arrival and brought to the ED for further evaluation. Chief Complaint: General Weakness Time Seen by MD: 11:11 Reviewed Notes: Nurses Notes, Medications, Allergies Information Source: Patient Mode of Arrival: EMS Brought in by: EMS Severity: Moderate Dizziness/Weakness Severity: Unable to do activities Headache Severity: None Timing: Hours Duration: Since onset Prehospital treatment: None Weakness Location: Generalized Onset: At rest Circumstances: Spontaneous Symptoms: Weakness History of: Anemia Modifying factors: Nothing Associated Signs and Symptoms: Nausea, Weakness Past Medical History PAST MEDICAL HISTORY: Anemia, HTN Surgical History: Hernia Repair Surgical History (Other): liver transplant 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 ASSISTANT 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: No Pertinent TEACHER ASSISTANT History Family History Family History: Family hx of heart robles Social History Smoker: Non-Smoker Alcohol: Denies ETOH Use Drugs: Denies Drug Use Lives In: Home Constitutional: reports: malaise, weakness; denies: chills, diaphoresis, fatigue, fever, sweats, others EENTM: denies: blurred vision, double vision, ear bleeding, ear discharge, ear drainage, ear pain, ear ringing, eye pain, eye redness, hearing loss, mouth pain, mouth swelling, nasal discharge, nose bleeding, nose congestion, nose pain, photophobia, tearing, throat pain, throat swelling, voice changes, others Respiratory: reports: shortness of breath; denies: cough, hemoptysis, orthopnea, SOB at rest, SOB with excertion, stridor, wheezing, others Cardiovascular: denies: chest pain, dizzy spells, diaphoresis, Dyspnea on exertion, edema, irregular heart beat, left arm pain, lightheadedness, palpitations, PND, syncope, others Gastrointestinal: reports: nausea; denies: abdomen distended, abdominal pain, blood streaked bowels, constipated, diarrhea, dysphagia, difficulty swallowing, hematemesis, melena, poor appetite, poor fluid intake, rectal bleeding, rectal pain, vomiting, others Genitourinary: denies: abnormal vagina bleeding, burning, dyspareunia, dysuria, flank pain, frequency, hematuria, incontinence, pain, , vagina discharge, urgency, others Neurological: reports: weakness; denies: dizziness, fainting, headache, left sided numbness, left sided weakness, numbness, paresthesia, pre-existing deficit, right sided numbness, right sided weakness, seizure, speech problems, tingling, tremors, others Musculoskeletal: denies: back pain, gout, joint pain, joint swelling, muscle pain, muscle stiffness, neck pain, others Integumetry: denies: bruises, change in color, change in hair/nails, dryness, laceration, lesions, lumps, rash, wounds, others Allergic/Immunocompromised: denies: Difficulty Healing, Frequent Infections, Hives, Itching, others Hematologic/Lymphatic: denies: anemia, blood clots, easy bleeding, easy bruising, swollen glands, others Endocrine: denies: excessive hunger, excessive sweating, excessive thirst, excessive urination, flushing, intolerance to cold, intolerance to heat, unexplained weight gain, unexplained weight loss, others Psychiatric: denies: anxiety, bipolar disorder, depression, hopeless, panic disorder, schizophrenia, sleepless, suicidal, others All Other Systems: Reviewed and Negative Physical Exam General Appearance: Moderate Distress HEENT: Pale Conjuntivae (L), Pale Conjuntivae (R), Pharynx Normal, TMs Normal Neck: Full Range of Motion, Non-Tender, Normal, Normal Inspection Respiratory: Chest Non-Tender, Lungs Clear, No Accessory Muscle Use, No Respiratory Distress, Normal Breath Sounds Cardiovascular: No Edema, No JVD, No Murmur, No Gallop, Normal Peripheral Pulses, Tachycardia Breast Exam: Deferred Gastrointestinal: No Organomegaly, Non Tender, No Pulsatile Mass, Normal Bowel Sounds, Soft Genitalia: Deferred Pelvic: Deferred Rectal: Deferred Extremities: No calf tenderness, Normal capillary refill, Normal inspection, Normal range of motion, Non-tender, No pedal edema Musculoskeletal : Apperance: Normal Neurologic: Alert, stone setter apprentice II-XII nml as Tested, Motor Weakness, Normal Affect, Normal Mood, No Sensory Deficits Cerebellar Function: Normal Reflexes: Normal Skin: Dry, Pallor, Warm Lymphatic: No Adenopathy EKG EKG : Pulse Rate (adult): 114 [place]: Normal Cardiac Rhythm: ST Block: None Hypertrophy: None ST: Normal Was a procedure done? Was a procedure done?: No Differential Diagnosis (SZ) Seizure: N/A General Weakness: Anemia, Dehydration, Electrolyte imbalance, Encephalopathy, Hypoglycemia, Hypotension, Hypovolemia, TIA X-Ray, Labs, Meds, VS Vital Signs Date Time Temp Pulse Resp B/P (MAP) Pulse Ox O2 Delivery O2 Flow Rate FiO2 04/21/25 11:36 97.8 105 18 152/100 (117) 97 97.8 04/21/25 11:25 96 Room Air* 0 21 04/21/25 11:15 114 04/21/25 10:54 97.8 105 18 165/110 100 97.8 04/21/25 10:52 114 Lab Test 04/21/25 11:26 Range/Units White Blood Count 4.3 #L 4.4-10.8 10^3/uL Red Blood Count 2.75 L 4.0-5.20 10^6/uL Hemoglobin 9.1 L 12.2-16.2 g/dL Hematocrit 27.7 L 36.0-46.0 % Mean Corpuscular Volume 100.6 #H 80.0-100.0 fL Mean Corpuscular Hemoglobin 33.0 H 28.0-32.0 pg Mean Corpuscular Hemoglobin Concent 32.8 32.0-36.0 g/dL Red Cell Distribution Width 17.6 H 11.8-14.3 % Platelet Count 352 140-450 10^3/uL Mean Platelet Volume 5.6 L 6.9-10.8 fL Neutrophils (%) (Auto) 68.8 37.0-80.0 % Lymphocytes (%) (Auto) 17.9 10.0-50.0 % Monocytes (%) (Auto) 8.5 0.0-12.0 % Eosinophils (%) (Auto) 3.6 0.0-7.0 % Basophils (%) (Auto) 1.2 0.0-2.0 % Neutrophils # (Auto) 3.0 1.6-8.6 10 ^3/uL Lymphocytes # (Auto) 0.8 0.4-5.4 10 ^3/uL Monocytes # (Auto) 0.4 0-1.3 10 ^3/uL Eosinophils # (Auto) 0.2 0-0.8 10 ^3/uL Basophils # (Auto) 0.1 0-0.2 10 ^3/uL Nucleated Red Blood Cells 0.3 % Prothrombin Time Pending Prothrombin Time INR Pending Activated Partial Thromboplast Time Pending Sodium Level 132 L 136-145 mmol/L Potassium Level 3.6 3.5-5.1 mmol/L Chloride Level 102 98-107 mmol/L Carbon Dioxide Level 18 L 20-31 mmol/L Anion Gap 12 5-15 Blood Urea Nitrogen < 5 L 9-23 mg/dL Creatinine 1.35 #H 0.550-1.02 mg/dL Glomerular Filtration Rate Calc 47 >90 mL/min BUN/Creatinine Ratio 3.7 L 10.0-20.0 Serum Glucose 87 74-106 mg/dL Calcium Level 8.5 L 8.7-10.4 mg/dL PROCEDURE(s): CXRP - CHEST PORTABLE IMPRESSION: No acute cardiopulmonary disease. IV Hep-Lock was established Patient's CBC shows anemia with a hemoglobin 9.1 with a hematocrit of 27.7 The chemistry panel is within normal limits. The creatinine is 1.35 At this time, the patient is being admitted to the hospitalist The patient's CBC is at a level where she does not be transfusion at this time There is a concern that this patient is symptomatic so we are going to the patient Images Reviewed?: Images reviewed and evaluated by me Time of 1ST Reevaluation: 11:45 Reevaluation 1ST: Unchanged Patient Education/Counseling: Diagnosis, Treatment Family Education/Counseling: No Family Present Departure 1 Departure Time of Disposition: 12:26 Impression: Primary Impression: Tachycardia Additional Impressions: Severe anemia Generalized weakness Disposition: ADMITTED INPATIENT Admit to: Tele Condition: Fair Critical Care Note Critical Care Time?: No Stability Stability form required: Yes Unstable for transfer: Telemetry monitoring (Telemetry monitoring required), ED Physician Assesment (Clinical assesment) Heart Score Heart Score: Heart Score Response (Comments) Value History N/A 0 EKG N/A 0 Age N/A 0 Risk Factors N/A 0 Troponin N/A 0 Total 0 I personally scribed for LILIANE MAE MD ([email or web address]) on 04/21/25 at 11:14. Electronically submitted by Gloria CLARK). I personally scribed for LILIANE MAE MD ([email or web address]) on 04/21/25 at 11:15. Electronically submitted by Gloria Díaz ([email or web address]). I personally scribed for LILIANE MAE MD ([email or web address]) on 04/21/25 at 12:17. Electronically submitted by Gloria Díaz ([email or web address]). LILIANE MAE MD Apr 21, 2025 11:14
[2025-04-21 11:25] VITALS: O2SAT 96
[2025-04-21 12:00] LABS: Hematocrit 27.7 % (36.0-46.0); Hemoglobin 9.1 g/dL (12.2-16.2); Mean Corpuscular Hemoglobin 33.0 pg (28.0-32.0); Mean Corpuscular Volume 100.6 fL (80.0-100.0); Nucleated Red Blood Cells % 0.3 %
[2025-04-21 12:12] LABS: Chloride 102 mmol/L (98-107); Potassium 3.6 mmol/L (3.5-5.1)
--- NOTE | 2025-04-21 12:12 | DVH ---
EXAM: XY CHEST PORTABLE Indication: weakness Technique: Single frontal view of the chest was obtained Comparison: XY CHEST TWO VIEWS ROUTINE on DOS: 04/14/25 FINDINGS: Lines and Tubes: None Lungs: No focal consolidation. Pleura: No effusion. No pneumothorax. Cardiomediastinal contours: Unremarkable Bones: No acute osseous abnormality. IMPRESSION: No acute cardiopulmonary disease.
[2025-04-21 12:13] LABS: Anion Gap 12 (5-15)
[2025-04-21 12:18] LABS: Glucose 87 mg/dL (74-106)
[2025-04-21 12:20] LABS: BUN/Creatinine Ratio 3.7 (10.0-20.0); Blood Urea Nitrogen < 5 mg/dL (9-23); Calcium 8.5 mg/dL (8.7-10.4); Carbon Dioxide 18 mmol/L (20-31); Sodium 132 mmol/L (136-145)
[2025-04-21 13:19] LABS: INR 1.07 (0.9-1.15); Partial Thromboplastin Time 26.2 SEC (24.5-34.5); Prothrombin Time 11.3 sec (9.3-11.8)
[2025-04-21] MEDS: SODIUM CHLORIDE 0.9% 1,000 ML IV ONE (14:26)
[2025-04-21 15:01] LABS: Albumin 3.5 g/dL (3.2-4.8); Alkaline Phosphatase 94 U/L (46-116); Total Protein 5.7 g/dL (5.7-8.2)
[2025-04-21 15:02] LABS: Alanine Aminotransferase < 9 U/L (7-40); Bilirubin, Direct 0.2 mg/dL (<0.3); Bilirubin, Total 0.3 mg/dL (0.2-1.0)
[2025-04-21 16:22] LABS: Opiate Scree,Urine Neg (NEGATIVE); Phencyclidine Screen, Urine Neg (NEGATIVE)
[2025-04-21 16:24] LABS: Amphetamine Screen, Urine Neg (NEGATIVE); Barbiturate Scree,Urine Neg (NEGATIVE); Benzodiazephine Screen, Urine Neg (NEGATIVE); Cannabinoid Screen, Urine Neg (NEGATIVE); Cocaine Screen, Urine Neg (NEGATIVE)
[2025-04-21 16:26] LABS: Urine Protein, UAD Negative (Negative)
[2025-04-21 17:02] LABS: COVID19 ANTIGEN SOFIA FIA NEGATIVE (NEGATIVE)
--- NOTE | 2025-04-21 18:11 | DVHHPRES ---
History of Present Illness Resident Creating Document: MICHAEL HANKS RESIDENT History of Present Illness 55-year-old female with past medical history of liver disease status post liver transplant in 2018, anemia, CKD and history of previous UTI presented with complaints of generalized weakness. Patient was recently in the hospital for similar complaints where she was transfused with PRBCs as she had severe anemia. Patient was discharged recently with oral antibiotics for colitis. Patient mentioned that she has been having episodes of diarrhea after going home from the hospital, watery, 4-5 episodes per day, patient has been having progressive weakness and now she can not stand on her feet. patient mentioned that she started drinking alcohol again after liver transplant which she quit three days ago, drinks vodka every day. Patient has been smoking recently and quit three weeks ago. Patient was on tacrolimus for liver transplantation but she stopped taking because of loss of insurance, wants to follow up again with the seafood farmer for restarting tamsulosin. She mentioned associated tingling in bilateral feet. Denied any paresthesias of the face or any carpopedal spasm. She denied any complaints of hematuria or hematemesis or melena. Denied any bleeding from any other site. She mentioned associated chills and nausea, headache and dizziness. Denied any chest pain, shortness of breath. Past medical history History of liver disease (previous history of alcoholic liver disease) status post liver transplant in 2018 Anemia CKD Multiple UTIs Past surgical history Denied any recent surgery Family history Noncontributory to the above Social history patient mentioned that she started drinking alcohol again which she quit three days ago, drinks vodka every day Patient has been smoking recently and quit three weeks ago Denied any marijuana or any other drug intake Patient is getting her new PCP and does not know the name Medication history Ferrous sulfate Pantoprazole Review of Systems Review of Systems As explained in the HPI Allergies: Coded Allergies: No Known Drug Allergy (Unverified Allergy, Unknown, 09/26/15) Medications Current Medications Medications Dose Ordered Sig/Edith Route Start Time Stop Time Status Last Admin Dose Admin Ondansetron HCl 4 mg Q4HP PRN IV 04/21/25 14:00 Ceftriaxone Sodium/Dextrose 50 ml @ 50 mls/hr DAILY IV 04/22/25 10:00 Metronidazole 100 ml @ 100 mls/hr Q8HR IV 04/21/25 22:00 Exam Vital Signs Vital Signs Date Time Temp Pulse Resp B/P (MAP) Pulse Ox O2 Delivery O2 Flow Rate FiO2 04/21/25 15:28 81 15 160/95 (116) 97 04/21/25 11:36 97.8 97.8 04/21/25 11:25 Room Air* 0 21 Exam Examination General Appearance: Alert, Oriented X3, Cooperative, pale, dry tongue HEENT: EOMI Respiratory: Clear to auscultation, Normal air movement Cardiovascular: Regular rate, Normal S1, Normal S2 Abdominal: Normal bowel sounds Extremities: No cyanosis, No edema, Normal pulses, No tenderness/swelling Skin: No rashes, No breakdown Neuro: Normal speech and tone Point of care ultrasound done at bedside IVC compressibility greater than 50% with inspiration IVC size 1.83 cm Labs/Xrays Labs Test 04/21/25 15:52 04/21/25 15:46 04/21/25 14:22 04/21/25 14:20 Range/Units Urine Color Yellow Yellow Urine Clarity Clear Clear Urine pH 7.0 5.0-9.0 Urine Specific [place] 1.009 1.001-1.035 Urine Protein Negative Negative Urine Ketones Negative Negative Urine Blood Negative Negative /uL Urine Nitrite Negative Negative Urine Bilirubin Negative Negative Urine Urobilinogen Normal Negative mg/dL Urine Leukocyte Esterase Negative Negative /uL Urine RBC <1 0 - 4 /hpf Urine Microscopic WBC 1 0-5 /HPF Urine Squamous Epithelial Cells Few <5 /hpf Urine Bacteria None seen None Seen /hpf Urine Glucose Normal Normal mg/dL Urine Opiates Screen Neg NEGATIVE Urine Fentanyl Screen Neg NEGATIVE Urine Barbiturates Screen Neg NEGATIVE Urine Phencyclidine Screen Neg NEGATIVE Urine Amphetamines Screen Neg NEGATIVE Urine Benzodiazepines Screen Neg NEGATIVE Urine Cocaine Screen Neg NEGATIVE Urine Cannabinoids Screen Neg NEGATIVE SARS-CoV-2 Antigen (Rapid) Negative NEGATIVE Lactic Acid Level 1.1 0.4-2.0 mmol/L Total Bilirubin 0.3 0.2-1.0 mg/dL Direct Bilirubin 0.2 <0.3 mg/dL Aspartate Amino Transferase (AST) 25 13-40 U/L Alanine Aminotransferase (ALT) < 9 7-40 U/L Alkaline Phosphatase 94 46-116 U/L Total Protein 5.7 5.7-8.2 g/dL Albumin 3.5 3.2-4.8 g/dL Blood Gas Specimen Type Venous Blood Gas Sample Site Vbg - n/a Blood Gas Patient Temperature 37.0 Arterial Blood Date Drawn José Luis Test N/a Venous Blood pH 7.455 H 7.320-7.430 Venous Blood pCO2 at Patient Temp 31.3 L 38.0-54.0 mmHg Venous Blood pO2 at Patient Temp < 36.5 23.0-48.0 mmHg Venous Blood HCO3 21.5 L 22.0-29.0 mmol/L Venous Blood Base Excess -1.3 -2.0-3.0 mmol/L Blood Gas Modality Room air FiO2 % 21.0 Test 04/21/25 12:37 04/21/25 11:26 Range/Units Prothrombin Time 11.3 9.3-11.8 sec Prothrombin Time INR 1.07 0.9-1.15 Activated Partial Thromboplast Time 26.2 24.5-34.5 SEC White Blood Count 4.3 #L 4.4-10.8 10^3/uL Red Blood Count 2.75 L 4.0-5.20 10^6/uL Hemoglobin 9.1 L 12.2-16.2 g/dL Hematocrit 27.7 L 36.0-46.0 % Mean Corpuscular Volume 100.6 #H 80.0-100.0 fL Mean Corpuscular Hemoglobin 33.0 H 28.0-32.0 pg Mean Corpuscular Hemoglobin Concent 32.8 32.0-36.0 g/dL Red Cell Distribution Width 17.6 H 11.8-14.3 % Platelet Count 352 140-450 10^3/uL Mean Platelet Volume 5.6 L 6.9-10.8 fL Neutrophils (%) (Auto) 68.8 37.0-80.0 % Lymphocytes (%) (Auto) 17.9 10.0-50.0 % Monocytes (%) (Auto) 8.5 0.0-12.0 % Eosinophils (%) (Auto) 3.6 0.0-7.0 % Basophils (%) (Auto) 1.2 0.0-2.0 % Neutrophils # (Auto) 3.0 1.6-8.6 10 ^3/uL Lymphocytes # (Auto) 0.8 0.4-5.4 10 ^3/uL Monocytes # (Auto) 0.4 0-1.3 10 ^3/uL Eosinophils # (Auto) 0.2 0-0.8 10 ^3/uL Basophils # (Auto) 0.1 0-0.2 10 ^3/uL Nucleated Red Blood Cells 0.3 % Sodium Level 132 L 136-145 mmol/L Potassium Level 3.6 3.5-5.1 mmol/L Chloride Level 102 98-107 mmol/L Carbon Dioxide Level 18 L 20-31 mmol/L Anion Gap 12 5-15 Blood Urea Nitrogen < 5 L 9-23 mg/dL Creatinine 1.35 #H 0.550-1.02 mg/dL Glomerular Filtration Rate Calc 47 >90 mL/min BUN/Creatinine Ratio 3.7 L 10.0-20.0 Serum Glucose 87 74-106 mg/dL Calcium Level 8.5 L 8.7-10.4 mg/dL SEPSIS Sepsis Screen Date sepsis recognized/suspect: Apr 21, 2025 Time Sepsis recognized/suspect: 1055 Recent Procedure: No On Antibiotic Therapy: No Respiratory Rate >20: No Heart Rate >90: Yes Temp<36 C (96.8 F) or >38.3 C: No SBP <90 or MAP <65 mmHG: No New Acute Mental Status Change: No Is the patient on CPAP, BIPAP,: No Physician Orders Chest Portable (04/21/25 11:06) Technical Analyst (04/21/25 11:06) Blood Pressure (04/21/25 11:06) Pulse Oximetry (04/21/25 11:06) Electrocardigram (04/21/25 11:06) Electrocardigram (04/21/25 12:06) Admit (04/21/25 13:52) Allergies (04/21/25 13:52) 2 Gm Sodium Diet (04/21/25 Dinner) Ondansetron Hcl (Zofran) (04/21/25 14:00) Complete Blood Count (04/22/25 04:00) Comprehensive Metabolic Panel (04/22/25 04:00) Oxygen By Nasal Cannula (04/21/25 13:52) Stat Ekg For Chest Pain (04/21/25 13:52) Notify Of Changes From Base (04/21/25 13:52) Freight Engineer For 24 Hours (04/21/25 13:52) Emergency Dysrhythmia Protocol (04/21/25 13:52) Rhythm Strips Once Every Shift (04/21/25 13:52) Electrocardigram (04/21/25 13:52) Clostridium Difficile Toxin (04/21/25 13:52) Stool Bacterial Culture (04/21/25 13:52) Stool Occult Blood (04/21/25 13:52) Stool Wbc (04/21/25 13:52) Code Status (04/21/25 13:52) Ceftriaxone 2gm/50ml (Rocephin 2gm/50ml) (04/22/25 10:00) Metronidazole 500mg/100ml (Flagyl 500mg/ (04/21/25 22:00) Venous Blood Gas (04/21/25 14:02) Vital Signs Date Time Temp Pulse Resp B/P (MAP) Pulse Ox O2 Delivery O2 Flow Rate FiO2 04/21/25 15:28 81 15 160/95 (116) 97 04/21/25 12:00 96 13 134/90 (105) 99 04/21/25 11:36 97.8 105 18 152/100 (117) 97 97.8 04/21/25 11:25 96 Room Air* 0 21 04/21/25 11:15 114 04/21/25 10:54 97.8 105 18 165/110 100 97.8 04/21/25 10:52 114 Laboratory Tests Test 04/21/25 11:26 04/21/25 14:22 White Blood Count 4.3 10^3/uL (4.4-10.8) #L Lactic Acid Level 1.1 mmol/L (0.4-2.0) Medications Medications Dose Ordered Sig/Edith Route Start Time Stop Time Status Last Admin Dose Admin Ceftriaxone Sodium/Dextrose 50 ml @ 50 mls/hr ONCE ONCE IV 04/21/25 14:00 04/21/25 14:59 DC 04/21/25 14:30 50 MLS/HR Metronidazole 100 ml @ 100 mls/hr ONCE ONCE IV 04/21/25 14:00 04/21/25 14:59 DC 04/21/25 14:30 100 MLS/HR Sodium Chloride 1,000 ml @ 500 mls/hr Q2H ONCE IV 04/21/25 14:00 04/21/25 15:59 DC 04/21/25 14:26 500 MLS/HR Assessment/Plan Assessment/Plan Assessment/plan # intractable diarrhea, rule out C diff, likely due to colitis # generalized weakness likely due to above -IV fluids -IV antibiotics, ceftriaxone and Flagyl C diff Stool studies including stool culture #ANA on 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 -IV FLuids -Avod nephrotoxic drugs # history of liver transplant due to alcoholic liver disease -recommended to follow up with seafood farmer to resume tacrolimus # Macrocytic anemia likely due to liver disease, -ordered B12 and folate -ordered iron studies as patient is currently on iron but anemia microcytic so less likely iron-deficiency anemia # mild hyponatremia due to hypovolemia -IV fluids # non-anion gap metabolic acidosis likely due to GI losses -IV fluids -ordered venous blood gas # DVT prophylaxis We will avoid Lovenox considering her recent history of blood transfusion and anemia, if hemoglobin stable consider for tomorrow Code status discussed with the patient for greater than 21 minutes, full code Case discussion with Dr Robledo Plan discussed with: Patient, Other My Orders Orders - MICHAEL HANKS RESIDENT Procedure Category Date Status Time Admit ADMIT 04/21/25 Transmitted 13:52 Allergies THI 04/21/25 In Process 13:52 2 Gm Sodium Diet DIET 04/21/25 Transmitted Dinner Ondansetron Hcl PHA 04/21/25 In Process (Zofran) 14:00 Complete Blood Count LAB 04/22/25 Verified 04:00 Comprehensive LAB 04/22/25 Verified Metabolic Panel 04:00 Oxygen By Nasal RT 04/21/25 Transmitted Cannula 13:52 Stat Ekg For Chest [facility] 04/21/25 In Process Pain 13:52 Notify Of Changes [facility] 04/21/25 In Process From Base 13:52 Freight Engineer For [facility] 04/21/25 In Process 24 Hours 13:52 Emergency Dysrhythmia [facility] 04/21/25 In Process Protocol 13:52 Rhythm Strips Once [facility] 04/21/25 In Process Every Shift 13:52 Electrocardigram EKG 04/21/25 Logged 13:52 Clostridium Difficile [facility] 04/21/25 Logged Toxin 13:52 Stool Bacterial [facility]ANIA 04/21/25 Logged Culture 13:52 Stool Occult Blood LAB 04/21/25 Logged 13:52 Stool Wbc LAB 04/21/25 Logged 13:52 Code Status CODE 04/21/25 Transmitted 13:52 Ceftriaxone 2gm/50ml PHA 04/22/25 In Process (Rocephin 2gm/50ml) 10:00 Metronidazole PHA 04/21/25 In Process 500mg/100ml (Flagyl 22:00 Venous Blood Gas RT 04/21/25 Logged 14:02 Date of Service: Apr 21, 2025 Billing Provider: MARY ROBLEDO MD Common Visit Codes: 62029-[id number] INP/OBS CARE (HIGH) Secondary Visit Codes: 58741-[id number] CARE PLAN 30 MINUTES MICHAEL HANKS RESIDENT Apr 21, 2025 18:11 MARY ROBLEDO MD Apr 22, 2025 01:49
[2025-04-21 18:25] LABS: Iron 118.0 ug/dL (50-170)
[2025-04-21 18:32] LABS: Ferritin 956.3 ng/mL (10-291)
[2025-04-21 18:34] LABS: Total Iron Binding Capacity 212.0 ug/dL (250-425)
--- NOTE | 2025-04-21 18:53 | ECG ---
[facility] Test Date: 2025-04-21 Test Time: 10:52:41 Pat Name: MICHELLE PEOPLES Department: ED Room: 0282T Gender: F Table Worker: russ : 1970 Requested By: LILIANE MAE Order Number: [id number] Reading MD: Vamsi Rizzo Measurements Intervals [place] Rate: 114 P: 58 RI: 169 QRS: 73 QRSD: 96 T: 0 QT: 345 QTc: 476 Interpretive Statements Sinus tachycardia Multiform ventricular premature complexes Sinus pause with ventricular escape Borderline T wave abnormalities Electronically Signed On 04-22-2025 15:07:22 PST by Vamsi Rizzo Please click the below link to view image of tracing.
[2025-04-21 19:20] VITALS: PULSE 83; RESP 15; O2SAT 98
[2025-04-22 03:40] LABS: Hematocrit 25.4 % (36.0-46.0); Hemoglobin 8.7 g/dL (12.2-16.2); Mean Corpuscular Hemoglobin 33.0 pg (28.0-32.0); Mean Corpuscular Volume 96.3 fL (80.0-100.0); Nucleated Red Blood Cells % 0.0 %
[2025-04-22 04:03] LABS: Albumin 3.4 g/dL (3.2-4.8); Alkaline Phosphatase 93 U/L (46-116); Anion Gap 10 (5-15); BUN/Creatinine Ratio 4.5 (10.0-20.0); Carbon Dioxide 21 mmol/L (20-31); Chloride 104 mmol/L (98-107); Glucose 81 mg/dL (74-106); Potassium 3.6 mmol/L (3.5-5.1)
[2025-04-22 04:04] LABS: Alanine Aminotransferase < 9 U/L (7-40); Bilirubin, Total 0.3 mg/dL (0.2-1.0); Blood Urea Nitrogen 6 mg/dL (9-23); Calcium 8.2 mg/dL (8.7-10.4); Sodium 135 mmol/L (136-145); Total Protein 5.6 g/dL (5.7-8.2)
[2025-04-22 08:30] VITALS: PULSE 86; RESP 14; O2SAT 99
[2025-04-22 09:20] LABS: Free T3 2.61 pg/mL (2.3-4.2)
[2025-04-22 09:21] LABS: Free T4 (Free Thyroxine) 1.14 ng/dL (0.89-1.76)
[2025-04-22 12:00] VITALS: RESP 18
[2025-04-22 13:00] VITALS: BP 150/97; PULSE 82; RESP 16; TEMP 98.2; O2SAT 100
[2025-04-22] MEDS: SODIUM CHLORIDE 0.9% 500 ML IV ONE (14:00)
[2025-04-22 17:00] VITALS: BP 139/91; PULSE 80; RESP 18; TEMP 98.3; O2SAT 99
--- NOTE | 2025-04-22 18:56 | DVHPNRES ---
Progress Note Date Seen: Apr 22, 2025 Resident Creating Document: MONSE MEDELLIN RESIDENT Medical Necessity Reason Pt with a Central, PICC or Fol: No Subjective Review of Systems Patient is a 55-year-old female with past medical history of liver transplant done in [place] in 2018, anemia, CKD,, previous UTIs, who presented to the hospital with chief complaints of generalized weakness and states that she can not walk on her own since 1 day. Patient was discharged recently with [facility] for colitis. Patient states that she has had 4-5 episodes of diarrhea per day since 1 week and yesterday had 3 episodes of diarrhea. And has been progressively weak since this past week. patient said drinking alcohol after liver transplantation on and off which she quit 3 weeks ago. Patient also states that she was smoking and quit 3 weeks ago. Patient was on tacrolimus for liver transplantation but stopped due to loss of insurance. Patient wants to follow-up with manager report to restart tacrolimus. Patient mentioned having tingling sensation in her face, feet, hands and felt dizzy since yesterday. Patient denies blood in her stools, vomiting, fever, chills, chest pain, shortness of breath. Past surgical history: Denies Family history: Reviewed, noncontributory Social history: Drink alcohol and quit 3 weeks ago, drinks vodka every day since 3 weeks ago, smoked recently quit 3 weeks ago, denies drug use, Medication history: Ferrous sulfate, pantoprazole 04/22/2025: Patient seen at bedside. Patient had 2 episodes of mixed watery stool which was green in color. C diff negative, ordered ova parasite, probiotics. Social service consult placed for PCP. Objective vital signs Vital Sign Date Time Temp Pulse Resp B/P (MAP) Pulse Ox O2 Delivery O2 Flow Rate FiO2 04/22/25 17:00 98.3 80 18 139/91 (107) 99 98.3 04/22/25 12:00 Room Air* 0 21 Total Intake and Output 04/21/25 04/21/25 04/22/25 15:00 23:00 07:00 Intake Total 1150 ml Output Total 75 ml Balance 1150 ml -75 ml medications Current Medications Medications Dose Ordered Sig/Edith Route Start Time Stop Time Status Last Admin Dose Admin Ondansetron HCl 4 mg Q4HP PRN IV 04/21/25 14:00 Ceftriaxone Sodium/Dextrose 50 ml @ 50 mls/hr DAILY IV 04/22/25 10:00 04/22/25 10:19 50 MLS/HR Metronidazole 100 ml @ 100 mls/hr Q8HR IV 04/21/25 22:00 04/22/25 14:00 100 MLS/HR Saccharomyces Boulardii 250 mg DAILY PO 04/23/25 10:00 Ibuprofen 400 mg Q8HP PRN PO 04/22/25 16:00 Examination General: Patient alert and oriented in person, place and time. Patient following commands. Generalized weakness HEENT: Normocephalic, atraumatic, moist mucous membranes Respiratory/pulmonary: Clear lungs bilaterally, vesicular murmurs present in almost all lung bragg, no associated crackles or wheezes. Cardiovascular: Normal heart sounds S1 and S2 with no associated murmurs Abdomen: Abdomen nondistended, there is no pain to palpation in any of the abdominal quadrants, no palpable masses. Extremities: There is no peripheral edema present at the lower extremities. Peripheral Pulses: 3+ Radial (R). 3+ Radial (L). 3+ Dorsalis pedis (R). 3+ Dorsalis pedis(L) Skin: No rashes or pruritus, there is no sacral edema present at this time. Neurological: Intact cranial nerves with no focal neurologic deficits laboratory and microbiology Laboratory Tests 04/22/25 03:02 Test 04/22/25 03:02 Range/Units Serum Glucose 81 74-106 mg/dL Microbiology Date/Time Source Procedure Growth Status 04/22/25 00:50 Stool Stool Culture - Preliminary Resulted 04/22/25 00:50 Stool Shiga Toxin I & II - Final Resulted 04/22/25 00:50 Stool Clostridium difficile Toxin Assay - Final Resulted Problem List/Assessment/Plan Problem List/Assessment/Plan # intractable diarrhea, likely due to colitis # generalized weakness likely due to above - ruled out C diff - ordered ova parasite - probiotics -IV fluids -IV antibiotics, ceftriaxone and Flagyl Stool studies including stool culture #ANA on questionable CKD due to VMN -IV Fluids -Avod nephrotoxic drugs # history of liver transplant due to alcoholic liver disease -recommended to follow up with manager report to resume tacrolimus # Macrocytic anemia likely due to liver disease, -ordered B12 and folate ? Subclinical hypothyroidism -TSH 8.8 -free T4 1.14 # mild hyponatremia due to hypovolemia -IV fluids # non-anion gap metabolic acidosis likely due to GI losses -IV fluids # DVT prophylaxis We will avoid Lovenox considering her recent history of blood transfusion and anemia, if hemoglobin stable consider for tomorrow Goals of care addressed with the patient for more than 27 minutes: Full code status Case discussed with Dr. Anderson , patient and nurse Plan discussed with: Patient My Orders My Orders Orders - MONSE MEDELLIN Procedure Category Date Status Time Ova & Parasite Exam THANIA 04/22/25 Logged 15:50 Florastor (S. PHA 04/23/25 In Process Boulardii) (Florastor) 10:00 Ibuprofen Tablet PHA 04/22/25 In Process (Motrin Tablet) 16:00 Discontinue Tele THI 04/22/25 In Process 15:54 Transfer Orders XFER 04/22/25 Transmitted 15:54 * Customer Experience Specialist CONS 04/22/25 Transmitted Consult Visit Coding STANDARD RES Billing Provider: JUAN ANDERSON MD Date of Service if different f: Apr 22, 2025 Common Visit Codes: [id number] INP/OBS CARE(HIGH) MONSE MEDELLIN RESIDENT Apr 22, 2025 18:56
[2025-04-22] MEDS: ONDANSETRON HCL 4 MG/2 ML VIAL IV PRN (20:50)
[2025-04-22 21:00] VITALS: BP 128/86; PULSE 80; RESP 16; TEMP 98.3; O2SAT 96
[2025-04-22] MEDS: IBUPROFEN 400 MG TAB PO PRN (21:58)
[2025-04-23 05:00] VITALS: BP 143/90; PULSE 79; RESP 17; TEMP 98.5; O2SAT 99
[2025-04-23 06:37] LABS: Anion Gap 11 (5-15); Carbon Dioxide 22 mmol/L (20-31); Chloride 106 mmol/L (98-107); Potassium 3.6 mmol/L (3.5-5.1); Sodium 139 mmol/L (136-145)
[2025-04-23 06:43] LABS: BUN/Creatinine Ratio 6.8 (10.0-20.0); Glucose 82 mg/dL (74-106)
[2025-04-23 06:44] LABS: Blood Urea Nitrogen 9 mg/dL (9-23); Calcium 8.2 mg/dL (8.7-10.4)
[2025-04-23 06:46] LABS: Hematocrit 25.6 % (36.0-46.0); Hemoglobin 8.7 g/dL (12.2-16.2); Mean Corpuscular Hemoglobin 32.6 pg (28.0-32.0); Mean Corpuscular Volume 95.9 fL (80.0-100.0); Nucleated Red Blood Cells % 0.1 %
[2025-04-23 08:00] VITALS: PULSE 104; RESP 16; O2SAT 98
[2025-04-23 08:36] VITALS: BP 131/89; PULSE 104; RESP 16; TEMP 98; O2SAT 98
[2025-04-23] MEDS: FLORASTOR (S. BOULARDII) 250 MG CAP PO SCH ×2 (10:25→23:13)
[2025-04-23 13:00] VITALS: BP 145/89; PULSE 80; RESP 16; TEMP 97.3; O2SAT 98
[2025-04-23] MEDS: SODIUM CHLORIDE 0.9% 1,000 ML IV ONE (13:09)
--- NOTE | 2025-04-23 15:18 | DVHPNRES ---
Progress Note Date Seen: Apr 23, 2025 Resident Creating Document: MONSE MEDELLIN RESIDENT Medical Necessity Reason Pt with a Central, PICC or Fol: No Subjective Review of Systems Patient is a 55-year-old female with past medical history of liver transplant done in [place] in 2018, anemia, CKD,, previous UTIs, who presented to the hospital with chief complaints of generalized weakness and states that she can not walk on her own since 1 day. Patient was discharged recently with [facility] for colitis. Patient states that she has had 4-5 episodes of diarrhea per day since 1 week and yesterday had 3 episodes of diarrhea. And has been progressively weak since this past week. patient said drinking alcohol after liver transplantation on and off which she quit 3 weeks ago. Patient also states that she was smoking and quit 3 weeks ago. Patient was on tacrolimus for liver transplantation but stopped due to loss of insurance. Patient wants to follow-up with shovel log loader operator to restart tacrolimus. Patient mentioned having tingling sensation in her face, feet, hands and felt dizzy since yesterday. Patient denies blood in her stools, vomiting, fever, chills, chest pain, shortness of breath. Past surgical history: Denies Family history: Reviewed, noncontributory Social history: Drink alcohol and quit 3 weeks ago, drinks vodka every day since 3 weeks ago, smoked recently quit 3 weeks ago, denies drug use, Medication history: Ferrous sulfate, pantoprazole 04/22/2025: Patient seen at bedside. Patient had 2 episodes of mixed watery stool which was green in color. C diff negative, ordered ova parasite, probiotics. Social service consult placed for PCP. 04/23/2025: Patient seen at bedside. Patient states that she had 5 episodes of mixed watery diarrhea which was green in color since yesterday. Patient was tachycardic so 1000 bolus given. Objective vital signs Vital Sign Date Time Temp Pulse Resp B/P (MAP) Pulse Ox O2 Delivery O2 Flow Rate FiO2 04/23/25 13:00 97.3 80 16 145/89 (107) 98 97.3 04/23/25 08:00 Room Air* 0 21 Total Intake and Output 04/22/25 04/22/25 04/23/25 15:00 23:00 07:00 Intake Total 150 ml 100 ml 680 ml Balance 150 ml 100 ml 680 ml medications Current Medications Medications Dose Ordered Sig/Edith Route Start Time Stop Time Status Last Admin Dose Admin Ondansetron HCl 4 mg Q4HP PRN IV 04/21/25 14:00 04/22/25 20:50 4 MG Ceftriaxone Sodium/Dextrose 50 ml @ 50 mls/hr DAILY IV 04/22/25 10:00 04/23/25 10:25 50 MLS/HR Metronidazole 100 ml @ 100 mls/hr Q8HR IV 04/21/25 22:00 04/23/25 06:00 100 MLS/HR Ibuprofen 400 mg Q8HP PRN PO 04/22/25 16:00 04/22/25 21:58 400 MG Saccharomyces Boulardii 250 mg BID PO 04/23/25 22:00 Examination General: Patient alert and oriented in person, place and time. Patient following commands. Generalized weakness HEENT: Normocephalic, atraumatic, moist mucous membranes Respiratory/pulmonary: Clear lungs bilaterally, vesicular murmurs present in almost all lung bragg, no associated crackles or wheezes. Cardiovascular: Normal heart sounds S1 and S2 with no associated murmurs Abdomen: Abdomen nondistended, there is no pain to palpation in any of the abdominal quadrants, no palpable masses. Extremities: There is no peripheral edema present at the lower extremities. Peripheral Pulses: 3+ Radial (R). 3+ Radial (L). 3+ Dorsalis pedis (R). 3+ Dorsalis pedis(L) Skin: No rashes or pruritus, there is no sacral edema present at this time. Neurological: Intact cranial nerves with no focal neurologic deficits laboratory and microbiology Laboratory Tests 04/23/25 06:06 Test 04/23/25 06:06 Range/Units Serum Glucose 82 74-106 mg/dL Microbiology Date/Time Source Procedure Growth Status 04/22/25 00:50 Stool Stool Culture - Preliminary Resulted 04/22/25 00:50 Stool Shiga Toxin I & II - Final Resulted 04/22/25 00:50 Stool Clostridium difficile Toxin Assay - Final Resulted Problem List/Assessment/Plan Problem List/Assessment/Plan # intractable diarrhea, likely due to colitis # generalized weakness likely due to above - ruled out C diff - ordered ova parasite - probiotics -IV fluids -IV antibiotics, ceftriaxone and Flagyl Stool studies including stool culture #ANA on questionable CKD due to VMN -IV Fluids -Avod nephrotoxic drugs # 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 Subclinical hypothyroidism -TSH 8.8 -free T4 1.14 # mild hyponatremia due to hypovolemia -IV fluids # non-anion gap metabolic acidosis -IV fluids # DVT prophylaxis We will avoid Lovenox considering her recent history of blood transfusion and anemia, if hemoglobin stable consider for tomorrow Goals of care addressed with the patient for more than 27 minutes: Full code status Case discussed with Dr. Anderson , patient and nurse Plan discussed with: Patient My Orders My Orders Orders - MONSE MEDELLIN Procedure Category Date Status Time Ova & Parasite Exam THANIA 04/22/25 In Process 15:50 Ibuprofen Tablet PHA 04/22/25 In Process (Motrin Tablet) 16:00 Discontinue Tele THI 04/22/25 In Process 15:54 Transfer Orders XFER 04/22/25 Transmitted 15:54 * Box Strapper CONS 04/22/25 Transmitted Consult Mrsa Screen THANIA 04/23/25 Logged 14:10 Mrsa Screen THANIA 04/23/25 In Process 14:13 Visit Coding STANDARD RES Billing Provider: JUAN ANDERSON MD Date of Service if different f: Apr 23, 2025 Common Visit Codes: [id number] INP/OBS CARE(HIGH) MONSE MEDELLIN RESIDENT Apr 23, 2025 15:18
[2025-04-23 17:00] VITALS: BP_SYST 145; BP_SYST 168; BP_DIAS 102; BP_DIAS 89; PULSE 80; RESP 15; RESP 16; TEMP 97.3; TEMP 97.6; O2SAT 100; O2SAT 98
[2025-04-23 21:00] VITALS: BP 159/99; PULSE 84; RESP 18; TEMP 96.9; O2SAT 99
[2025-04-24] VITALS (7 sets, daily range): BP systolic 109–148; BP diastolic 74–94; PULSE 80–105; RESP 16–17; TEMP 97.3–98.2; O2SAT 98–100
[2025-04-24 06:54] LABS: Hematocrit 27.0 % (36.0-46.0); Hemoglobin 9.2 g/dL (12.2-16.2); Mean Corpuscular Hemoglobin 32.3 pg (28.0-32.0); Mean Corpuscular Volume 95.1 fL (80.0-100.0); Nucleated Red Blood Cells % 0.1 %
[2025-04-24 07:08] LABS: Chloride 106 mmol/L (98-107); Sodium 140 mmol/L (136-145)
[2025-04-24 07:09] LABS: Anion Gap 12 (5-15); Carbon Dioxide 22 mmol/L (20-31)
[2025-04-24 07:11] LABS: Calcium 8.6 mg/dL (8.7-10.4); Potassium 3.3 mmol/L (3.5-5.1)
[2025-04-24 07:14] LABS: BUN/Creatinine Ratio 6.8 (10.0-20.0); Glucose 81 mg/dL (74-106)
[2025-04-24 07:16] LABS: Blood Urea Nitrogen 8 mg/dL (9-23)
[2025-04-24] MEDS: POTASSIUM EFFERVESENT TAB 25 MEQ PO ONE (08:39)
[2025-04-24] MEDS: SODIUM CHLORIDE 0.9% 500 ML IV ONE ×2 (08:40→12:00)
[2025-04-24] MEDS: PANTOPRAZOLE 40 MG TAB PO ONE (10:59)
[2025-04-24] MEDS ORDERED: IOHEXOL 350 MG/ML 100ML IJ ONE (14:52)
--- NOTE | 2025-04-24 15:53 | DVH ---
EXAM: CT CT AB PEL WITH IV CON ONLY HISTORY: r/o appendicitis TECHNIQUE: Volumetric multidetector CT images of the abdomen and pelvis were obtained after the administration of intravenous contrast. All CT scans at this facility use dose modulation, iterative reconstruction, and/or weight based dosing when appropriate to reduce radiation dose to as low as reasonably achievable. COMPARISON: CT CT AB PEL WITH IV CON ONLY on DOS: 04/14/25 FINDINGS: [LOWER CHEST]: The partially visualized lung bases are clear without a pleural effusion. [LIVER]: Question mild intrahepatic biliary dilation. [GALLBLADDER AND BILIARY TREE]: Multiple postsurgical changes in the right upper quadrant correlate with clinical exam. Distal common bile duct is normal in caliber. No cholelithiasis. [SPLEEN]: Unremarkable. [PANCREAS]: Unremarkable. [ADRENAL GLANDS]: Unremarkable. [KIDNEYS]: Benign-appearing cysts of the right superior kidney. Relative bilateral symmetric hypoenhancement of the bilateral kidneys which may reflect acute kidney injury versus medical renal disease. No hydronephrosis. No nephroureterolithiasis. [BLADDER]: Minimal possible bladder wall thickening with trace surrounding inflammatory stranding correlate with urinalysis for cystitis. [REPRODUCTIVE ORGANS]: Intact bilateral breast implants. [BOWEL/MESENTERY]: Air-fluid distention of the stomach. Air-fluid level of the ascending and transverse colon with fluid-filled stool throughout the colon correlate for diarrheal illness. No CT evidence of bowel obstruction. [ASCITES]: Absent [LYMPHADENOPATHY]: No pathologically enlarged lymph nodes by CT size criteria [VASCULATURE]: No aneurysmal dilatation. [ABDOMINAL WALL]: Unremarkable. [MUSCULOSKELETAL]: No acute fracture or aggressive focal osseous lesion. Multifocal degenerative change of the visualized spine. IMPRESSION: 1. No CT evidence of an acute abdominal/pelvic process. 2. Air-fluid distention of the stomach. 3. Air-fluid level of the ascending and transverse colon with fluid-filled stool throughout the colon correlate for diarrheal illness. 4. No CT evidence of appendicitis. 5. Question mild intrahepatic biliary dilation. 6. Correlate with clinical exam.
--- NOTE | 2025-04-24 16:17 | DVHPNRES ---
Progress Note Date Seen: Apr 24, 2025 Resident Creating Document: MONSE MEDELLIN RESIDENT Medical Necessity Reason Pt with a Central, PICC or Fol: No Subjective Review of Systems Patient is a 55-year-old female with past medical history of liver transplant done in [place] in 2018, anemia, CKD,, previous UTIs, who presented to the hospital with chief complaints of generalized weakness and states that she can not walk on her own since 1 day. Patient was discharged recently with [facility] for colitis. Patient states that she has had 4-5 episodes of diarrhea per day since 1 week and yesterday had 3 episodes of diarrhea. And has been progressively weak since this past week. patient said drinking alcohol after liver transplantation on and off which she quit 3 weeks ago. Patient also states that she was smoking and quit 3 weeks ago. Patient was on tacrolimus for liver transplantation but stopped due to loss of insurance. Patient wants to follow-up with continuity writer to restart tacrolimus. Patient mentioned having tingling sensation in her face, feet, hands and felt dizzy since yesterday. Patient denies blood in her stools, vomiting, fever, chills, chest pain, shortness of breath. Past surgical history: Denies Family history: Reviewed, noncontributory Social history: Drink alcohol and quit 3 weeks ago, drinks vodka every day since 3 weeks ago, smoked recently quit 3 weeks ago, denies drug use, Medication history: Ferrous sulfate, pantoprazole 04/22/2025: Patient seen at bedside. Patient had 2 episodes of mixed watery stool which was green in color. C diff negative, ordered ova parasite, probiotics. Social service consult placed for PCP. 04/23/2025: Patient seen at bedside. Patient states that she had 5 episodes of mixed watery diarrhea which was green in color since yesterday. Patient was tachycardic so 1000 bolus given. 04/24/25: Patient seen at bedside where the patient has had 2 episodes of mixed watery diarrhea. CT abdomen was ordered which did not show any acute abnormality. Objective vital signs Vital Sign Date Time Temp Pulse Resp B/P (MAP) Pulse Ox O2 Delivery O2 Flow Rate FiO2 04/24/25 13:00 97.8 88 16 148/94 (112) 100 97.8 04/24/25 08:00 Room Air* 0 21 Total Intake and Output 04/23/25 04/23/25 04/24/25 15:00 23:00 07:00 Intake Total 840 ml 500 ml Balance 840 ml 500 ml medications Current Medications Medications Dose Ordered Sig/Edith Route Start Time Stop Time Status Last Admin Dose Admin Ondansetron HCl 4 mg Q4HP PRN IV 04/21/25 14:00 04/24/25 08:45 4 MG Ceftriaxone Sodium/Dextrose 50 ml @ 50 mls/hr DAILY IV 04/22/25 10:00 04/24/25 10:30 50 MLS/HR Metronidazole 100 ml @ 100 mls/hr Q8HR IV 04/21/25 22:00 04/24/25 05:34 100 MLS/HR Ibuprofen 400 mg Q8HP PRN PO 04/22/25 16:00 04/24/25 08:45 400 MG Saccharomyces Boulardii 250 mg BID PO 04/23/25 22:00 04/24/25 10:31 250 MG Pantoprazole Sodium 40 mg DAILY@0600 PO 04/25/25 06:00 Examination General: Patient alert and oriented in person, place and time. Patient following commands. Generalized weakness HEENT: Normocephalic, atraumatic, moist mucous membranes Respiratory/pulmonary: Clear lungs bilaterally, vesicular murmurs present in almost all lung bragg, no associated crackles or wheezes. Cardiovascular: Normal heart sounds S1 and S2 with no associated murmurs Abdomen mild abdominal tenderness on palpation Extremities: There is no peripheral edema present at the lower extremities. Peripheral Pulses: 3+ Radial (R). 3+ Radial (L). 3+ Dorsalis pedis (R). 3+ Dorsalis pedis(L) Skin: No rashes or pruritus, there is no sacral edema present at this time. Neurological: Intact cranial nerves with no focal neurologic deficits laboratory and microbiology Laboratory Tests 04/24/25 06:18 Test 04/24/25 06:18 Range/Units Serum Glucose 81 74-106 mg/dL Microbiology Date/Time Source Procedure Growth Status 04/22/25 00:50 Stool Stool Culture - Preliminary Resulted 04/22/25 00:50 Stool Shiga Toxin I & II - Final Resulted 04/22/25 00:50 Stool Clostridium difficile Toxin Assay - Final Resulted Problem List/Assessment/Plan Problem List/Assessment/Plan # Intractable diarrhea, likely due to colitis # generalized weakness likely due to above - ruled out C diff - ordered ova parasite - probiotics -IV fluids -IV antibiotics, ceftriaxone and Flagyl Stool studies including stool culture #ANA on questionable CKD due to VMN -IV Fluids -Avod nephrotoxic drugs # history of liver transplant due to alcoholic liver disease -recommended to follow up with continuity writer to resume tacrolimus # Macrocytic anemia likely due to liver disease, -ordered B12 and folate ? Subclinical hypothyroidism -TSH 8.8 -free T4 1.14 # mild hyponatremia due to hypovolemia -IV fluids # non-anion gap metabolic acidosis -IV fluids # DVT prophylaxis We will avoid Lovenox considering her recent history of blood transfusion and anemia, if hemoglobin stable consider for tomorrow Goals of care addressed with the patient for more than 27 minutes: Full code status Case discussed with Dr. Anderson , patient and nurse Plan discussed with: Patient My Orders My Orders Orders - MONSE MEDELLIN Procedure Category Date Status Time Pantoprazole Tablet PHA 04/25/25 In Process (Protonix Tablet) 06:00 Ct Ab Pel With Iv Con CT 04/24/25 Resulted Only 12:40 Visit Coding STANDARD RES Billing Provider: JUAN ANDERSON MD Date of Service if different f: Apr 24, 2025 Common Visit Codes: [id number] INP/OBS CARE(HIGH) MONSE MEDELLIN Apr 24, 2025 16:17
[2025-04-25 01:00] VITALS: BP 134/79; PULSE 80; RESP 17; TEMP 97; O2SAT 97
[2025-04-25 05:00] VITALS: BP 166/95; PULSE 80; RESP 17; TEMP 97.3; O2SAT 98
[2025-04-25 05:24] LABS: Hematocrit 25.6 % (36.0-46.0); Hemoglobin 8.7 g/dL (12.2-16.2); Mean Corpuscular Hemoglobin 32.6 pg (28.0-32.0); Mean Corpuscular Volume 95.5 fL (80.0-100.0); Nucleated Red Blood Cells % 0.1 %
[2025-04-25 05:33] LABS: Chloride 106 mmol/L (98-107); Potassium 4.0 mmol/L (3.5-5.1); Sodium 139 mmol/L (136-145)
[2025-04-25 05:34] LABS: Anion Gap 9 (5-15); Carbon Dioxide 24 mmol/L (20-31)
[2025-04-25 05:39] LABS: BUN/Creatinine Ratio 7.5 (10.0-20.0); Blood Urea Nitrogen 9 mg/dL (9-23); Glucose 83 mg/dL (74-106)
[2025-04-25 05:52] LABS: Calcium 8.4 mg/dL (8.7-10.4)
[2025-04-25] MEDS: PANTOPRAZOLE 40 MG TAB PO SCH (05:53)
[2025-04-25 08:50] VITALS: BP 156/100; PULSE 86; RESP 20; TEMP 97.6; O2SAT 98
[2025-04-25 13:00] VITALS: BP 155/89; PULSE 90; RESP 20; TEMP 97.6; O2SAT 99
[2025-04-25] MEDS: MAGNESIUM SULFATE 1GM/100ML 100 ML IV SCH (14:10)
[2025-04-25] MEDS: SODIUM CHLORIDE 0.9% 500 ML IV ONE ×2 (14:18→18:10)
--- NOTE | 2025-04-25 17:00 | DVHPNRES ---
Progress Note Date Seen: Apr 25, 2025 Resident Creating Document: MONSE MEDELLIN RESIDENT Medical Necessity Reason Pt with a Central, PICC or Fol: No Subjective Review of Systems Patient is a 55-year-old female with past medical history of liver transplant done in [place] in 2018, anemia, CKD,, previous UTIs, who presented to the hospital with chief complaints of generalized weakness and states that she can not walk on her own since 1 day. Patient was discharged recently with [facility] for colitis. Patient states that she has had 4-5 episodes of diarrhea per day since 1 week and yesterday had 3 episodes of diarrhea. And has been progressively weak since this past week. patient said drinking alcohol after liver transplantation on and off which she quit 3 weeks ago. Patient also states that she was smoking and quit 3 weeks ago. Patient was on tacrolimus for liver transplantation but stopped due to loss of insurance. 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 Patient mentioned having tingling sensation in her face, feet, hands and felt dizzy since yesterday. Patient denies blood in her stools, vomiting, fever, chills, chest pain, shortness of breath. Past surgical history: Denies Family history: Reviewed, noncontributory Social history: Drink alcohol and quit 3 weeks ago, drinks vodka every day since 3 weeks ago, smoked recently quit 3 weeks ago, denies drug use, Medication history: Ferrous sulfate, pantoprazole 04/22/2025: Patient seen at bedside. Patient had 2 episodes of mixed watery stool which was green in color. C diff negative, ordered ova parasite, probiotics. Social service consult placed for PCP. 04/23/2025: Patient seen at bedside. Patient states that she had 5 episodes of mixed watery diarrhea which was green in color since yesterday. Patient was tachycardic so 1000 bolus given. 04/24/25: Patient seen at bedside where the patient has had 2 episodes of mixed watery diarrhea. CT abdomen was ordered which did not show any acute abnormality. 04/25/25: Patient seen at bedside. Patient states she had 3 episodes of watery mixed diarrhea which is green in color. Ova and parasite exam pending. Objective vital signs Vital Sign Date Time Temp Pulse Resp B/P (MAP) Pulse Ox O2 Delivery O2 Flow Rate FiO2 04/25/25 13:00 97.6 90 20 155/89 (111) 99 97.6 04/24/25 20:00 Room Air* 0 21 Total Intake and Output 04/24/25 04/24/25 04/25/25 15:00 23:00 07:00 Intake Total 1050 ml 1000 ml 774 ml Balance 1050 ml 1000 ml 774 ml medications Current Medications Medications Dose Ordered Sig/Edith Route Start Time Stop Time Status Last Admin Dose Admin Ondansetron HCl 4 mg Q4HP PRN IV 04/21/25 14:00 04/24/25 08:45 4 MG Ceftriaxone Sodium/Dextrose 50 ml @ 50 mls/hr DAILY IV 04/22/25 10:00 04/25/25 10:55 50 MLS/HR Metronidazole 100 ml @ 100 mls/hr Q8HR IV 04/21/25 22:00 04/25/25 14:17 100 MLS/HR Ibuprofen 400 mg Q8HP PRN PO 04/22/25 16:00 04/24/25 21:18 400 MG Saccharomyces Boulardii 250 mg BID PO 04/23/25 22:00 04/25/25 10:54 250 MG Pantoprazole Sodium 40 mg DAILY@0600 PO 04/25/25 06:00 04/25/25 05:53 40 MG Examination General: Patient alert and oriented in person, place and time. Patient following commands. Generalized weakness HEENT: Normocephalic, atraumatic, moist mucous membranes Respiratory/pulmonary: Clear lungs bilaterally, vesicular murmurs present in almost all lung bragg, no associated crackles or wheezes. Cardiovascular: Normal heart sounds S1 and S2 with no associated murmurs Abdomen mild abdominal tenderness on palpation Extremities: There is no peripheral edema present at the lower extremities. Peripheral Pulses: 3+ Radial (R). 3+ Radial (L). 3+ Dorsalis pedis (R). 3+ Dorsalis pedis(L) Skin: No rashes or pruritus, there is no sacral edema present at this time. Neurological: Intact cranial nerves with no focal neurologic deficits laboratory and microbiology Laboratory Tests 04/25/25 04:53 Test 04/25/25 04:53 Range/Units Serum Glucose 83 74-106 mg/dL Microbiology Date/Time Source Procedure Growth Status 04/25/25 05:55 Nose MRSA Screen - Final Complete 04/22/25 00:50 Stool Stool Culture - Final Complete 04/22/25 00:50 Stool Shiga Toxin I & II - Final Complete 04/22/25 00:50 Stool Clostridium difficile Toxin Assay - Final Complete Problem List/Assessment/Plan Problem List/Assessment/Plan # Intractable diarrhea, likely due to colitis # generalized weakness likely due to above - ruled out C diff - ordered ova parasite - probiotics -IV fluids -IV antibiotics, ceftriaxone and Flagyl Stool studies including stool culture #ANA on questionable 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 Subclinical hypothyroidism -TSH 8.8 -free T4 1.14 # mild hyponatremia due to hypovolemia -IV fluids # non-anion gap metabolic acidosis -IV fluids # DVT prophylaxis We will avoid Lovenox considering her recent history of blood transfusion and anemia, if hemoglobin stable consider for tomorrow Goals of care addressed with the patient for more than 27 minutes: Full code status Case discussed with Dr. Anderson , patient and nurse Plan discussed with: Patient My Orders My Orders Orders - MONSE MEDELLIN Procedure Category Date Status Time Ova & Parasite Exam THANIA 04/25/25 Logged 14:43 Visit Coding STANDARD RES Billing Provider: JUAN ANDERSON MD Date of Service if different f: Apr 25, 2025 Common Visit Codes: 49157-APPILTXMPD INP/OBS CARE(HIGH) MONSE MEDELLIN Apr 25, 2025 17:00
[2025-04-25 17:10] VITALS: BP 151/80; PULSE 88; RESP 20; TEMP 97.8; O2SAT 99
[2025-04-25 21:00] VITALS: BP 150/90; PULSE 94; RESP 18; TEMP 97.4; O2SAT 100
[2025-04-26 01:00] VITALS: BP 113/62; PULSE 84; RESP 16; TEMP 97.3; O2SAT 97
[2025-04-26 05:00] VITALS: BP 143/81; PULSE 89; RESP 17; TEMP 97.4; O2SAT 97
[2025-04-26 07:24] LABS: Chloride 106 mmol/L (98-107); Potassium 4.0 mmol/L (3.5-5.1); Sodium 139 mmol/L (136-145)
[2025-04-26 07:25] LABS: Anion Gap 10 (5-15); Calcium 9.1 mg/dL (8.7-10.4); Carbon Dioxide 23 mmol/L (20-31)
[2025-04-26 07:30] LABS: BUN/Creatinine Ratio 7.4 (10.0-20.0); Glucose 75 mg/dL (74-106)
[2025-04-26 07:31] LABS: Blood Urea Nitrogen 8 mg/dL (9-23)
[2025-04-26 08:54] VITALS: BP 169/103; PULSE 91; RESP 20; TEMP 98.4; O2SAT 98
[2025-04-26 12:43] VITALS: BP 145/71; PULSE 101; RESP 20; TEMP 98.3; O2SAT 98
[2025-04-26] MEDS ORDERED: SACC250C PO ×3 (12:52→17:15)
[2025-04-26] MEDS ORDERED: PANT40T PO ×3 (12:52→17:15)
[2025-04-26] MEDS: SODIUM CHLORIDE 0.9% 500 ML IV ONE (14:16)
[2025-04-26 16:43] VITALS: BP 142/85; PULSE 94; RESP 20; TEMP 98.3; O2SAT 99
--- NOTE | 2025-04-26 17:33 | DVHDSRES ---
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 # Macrocytic anemia likely due to liver disease # mild hyponatremia due to hypovolemia # non-anion gap metabolic acidosis likely due to GI losses # DVT prophylaxis Wounds: none Labs/Diagnostic Data: Laboratory Results Test 04/26/25 06:17 04/25/25 04:53 04/22/25 10:29 04/22/25 03:02 Sodium Level 139 mmol/L (136-145) Potassium Level 4.0 mmol/L (3.5-5.1) Chloride Level 106 mmol/L (98-107) Carbon Dioxide Level 23 mmol/L (20-31) Anion Gap 10 (5-15) Blood Urea Nitrogen 8 mg/dL (9-23) Creatinine 1.08 mg/dL (0.550-1.02) Glomerular Filtration Rate Calc 61 mL/min (>90) BUN/Creatinine Ratio 7.4 (10.0-20.0) Serum Glucose 75 mg/dL (74-106) Calcium Level 9.1 mg/dL (8.7-10.4) Magnesium Level 2.0 mg/dL (1.6-2.6) White Blood Count 3.2 10^3/uL (4.4-10.8) Red Blood Count 2.68 10^6/uL (4.0-5.20) Hemoglobin 8.7 g/dL (12.2-16.2) Hematocrit 25.6 % (36.0-46.0) Mean Corpuscular Volume 95.5 fL (80.0-100.0) Mean Corpuscular Hemoglobin 32.6 pg (28.0-32.0) Mean Corpuscular Hemoglobin Concent 34.1 g/dL (32.0-36.0) Red Cell Distribution Width 17.4 % (11.8-14.3) Platelet Count 324 10^3/uL (140-450) Mean Platelet Volume 6.1 fL (6.9-10.8) Neutrophils (%) (Auto) 56.5 % (37.0-80.0) Lymphocytes (%) (Auto) 27.7 % (10.0-50.0) Monocytes (%) (Auto) 8.0 % (0.0-12.0) Eosinophils (%) (Auto) 6.1 % (0.0-7.0) Basophils (%) (Auto) 1.7 % (0.0-2.0) Neutrophils # (Auto) 1.8 10 ^3/uL (1.6-8.6) Lymphocytes # (Auto) 0.9 10 ^3/uL (0.4-5.4) Monocytes # (Auto) 0.3 10 ^3/uL (0-1.3) Eosinophils # (Auto) 0.2 10 ^3/uL (0-0.8) Basophils # (Auto) 0.1 10 ^3/uL (0-0.2) Nucleated Red Blood Cells 0.1 % Plasma/Serum Blood Alcohol < 3.0 mg/dL (<10) Total Bilirubin 0.3 mg/dL (0.2-1.0) Aspartate Amino Transferase (AST) 18 U/L (13-40) Alanine Aminotransferase (ALT) < 9 U/L (7-40) Alkaline Phosphatase 93 U/L (46-116) Total Protein 5.6 g/dL (5.7-8.2) Albumin 3.4 g/dL (3.2-4.8) Free Thyroxine (T4) Calculated 1.14 ng/dL (0.89-1.76) Free Triiodothyronine (T3) pg/mL 2.61 pg/mL (2.3-4.2) Test 04/22/25 00:50 04/21/25 15:52 04/21/25 15:46 04/21/25 14:22 Stool Occult Blood Negative (Negative) Stool Occult Blood Sample #3 (Negative) Stool for White Cells Rare Urine Color Yellow (Yellow) Urine Clarity Clear (Clear) Urine pH 7.0 (5.0-9.0) Urine Specific Perry 1.009 (1.001-1.035) Urine Protein Negative (Negative) Urine Ketones Negative (Negative) Urine Blood Negative /uL (Negative) Urine Nitrite Negative (Negative) Urine Bilirubin Negative (Negative) Urine Urobilinogen Normal mg/dL (Negative) Urine Leukocyte Esterase Negative /uL (Negative) Urine RBC <1 /hpf (0 - 4) Urine Microscopic WBC 1 /HPF (0-5) Urine Squamous Epithelial Cells Few /hpf (<5) Urine Bacteria None seen /hpf (None Seen) Urine Glucose Normal mg/dL (Normal) Urine Opiates Screen Neg (NEGATIVE) Urine Fentanyl Screen Neg (NEGATIVE) Urine Barbiturates Screen Neg (NEGATIVE) Urine Phencyclidine Screen Neg (NEGATIVE) Urine Amphetamines Screen Neg (NEGATIVE) Urine Benzodiazepines Screen Neg (NEGATIVE) Urine Cocaine Screen Neg (NEGATIVE) Urine Cannabinoids Screen Neg (NEGATIVE) SARS-CoV-2 Antigen (Rapid) Negative (NEGATIVE) Lactic Acid Level 1.1 mmol/L (0.4-2.0) Iron Level 118 ug/dL (50-170) Total Iron Binding Capacity 212 ug/dL (250-425) Percent Iron Saturation 55.7 % (15-50) Ferritin 956.3 ng/mL (10-291) Direct Bilirubin 0.2 mg/dL (<0.3) Vitamin B12 Level 378 pg/mL (211-911) Folic Acid 6.11 ng/mL (>5.38) Thyroid Stimulating Hormone (TSH) 8.87 uIU/mL (0.55-4.78) Test 04/21/25 14:20 04/21/25 12:37 Blood Gas Specimen Type Venous Blood Gas Sample Site Vbg - n/a Blood Gas Patient Temperature 37.0 Arterial Blood Date Drawn José Luis Test N/a Venous Blood pH 7.455 (7.320-7.430) Venous Blood pCO2 at Patient Temp 31.3 mmHg (38.0-54.0) Venous Blood pO2 at Patient Temp < 36.5 mmHg (23.0-48.0) Venous Blood HCO3 21.5 mmol/L (22.0-29.0) Venous Blood Base Excess -1.3 mmol/L (-2.0-3.0) Blood Gas Modality Room air FiO2 % 21.0 Prothrombin Time 11.3 sec (9.3-11.8) Prothrombin Time INR 1.07 (0.9-1.15) Activated Partial Thromboplast Time 26.2 SEC (24.5-34.5) Other Laboratory Tests 04/26/25 06:17 04/25/25 04:53 Brief Hx & Hospital Course: Patient is a 55-year-old female with a medical history of chronic liver disease s/p liver transplant in 2018, anemia, CKD presented to the hospital with a chief complaint of generalized weakness. Patient was recently discharged from this facility with oral antibiotics for colitis. Patient mentioned that she kept on having diarrhea 4-5 episodes per day following which she came to the hospital for further evaluation. CT abdomen pelvis with IV contrast was done which showed no evidence of acute abdominal/pelvic process, possible diarrheal illness. Stool cultures were negative for growth of E coli 0157, Salmonella, Shigella, Campylobacter, no C diff toxin detected. Patient was started on probiotic Florastor with gradual improvement of her diarrheal illness from having about 7 bowel movements to 4 bowel movements per day. Patient reported abdominal pain has improved. Patient reported that she has not been taking any immunomodulatory medications for her liver transplant since the last 2 years because of her insurance issues and has an upcoming appointment with a new PCP on Saturday 04/28. Liver function tests were within normal limits and PT INR were normal. As per GI patient does not need to be started on any steroids and needs to follow up outpatient with a specialist for further medications for her liver transplant. Patient discharged in stable condition to home advised to follow up with a new PCP on the scheduled appointment and in the discharge clinic in 1 week. Discharge medications: Florastor 250 mg b.i.d. for 4 days, Protonix 40 mg daily for GERD Skin - Patients skin is warm and dry. HEENT - normocephalic, atraumatic, moist mucous membranes, mild conjunctival pallor, no scleral icterus. Neck - full ROM, no LAD, no JVD Pulmonary - B/L clear breath sounds without any wheezing or rales cardiovascular - regular S1,S2 heard, no added sounds, no murmurs heard. GI - soft abdomen . no hepatospleenomegaly. Bowel sounds normoactive Neurological - Patient is A/O X 4. Bilateral upper extremity strength 5/5, bilateral lower extremity strength 5/5, no facial droop, normal speech, no tremor, no sensory deficiets. Time spent on discharge plannin minutes Plan discussed with Dr. Wall Consults/Reason for consult None Operations or Procedures CT abdomen pelvis with IV contrast IMPRESSION: 1. No CT evidence of an acute abdominal/pelvic process. 2. Air-fluid distention of the stomach. 3. Air-fluid level of the ascending and transverse colon with fluid-filled stool throughout the colon correlate for diarrheal illness. 4. No CT evidence of appendicitis. 5. Question mild intrahepatic biliary dilation. 6. Correlate with clinical exam. 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 Boulardii)(S. Cerevi (Florastor), 250 MG PO BID Discharge Statement: "Patient was advised to return to the ER or call 911 if any headaches, dizziness, shortness of breath, chest pain, abdominal pain, bleeding, fevers, or worsening of medical condition. Patient was counseled about treatment plan, medications, possible side effects, patientverbalized understanding. All questions were answered to the best of my ability. 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
== END 2025-04-26 18:05 | disposition home or self-care (01) | DRG 391 ==
LOC: ER 10:46 → EDUNIT# 10:46 → EDBD 10:46 → OVERFLOW 13:52 → TELE-WESTW 04-22 11:48 → WEST WING 04-22 16:38
PROVIDERS: ADMIT Student in an Organized Health Care Education/Training Program; ATTEND Nurse Practitioner Family
DX: A09 Infectious gastroenteritis and colitis, unspecified (principal); N17.0 Acute kidney failure with tubular necrosis; E87.20 Acidosis, unspecified; Z94.4 Liver transplant status; N18.9 Chronic kidney disease, unspecified; D53.9 Nutritional anemia, unspecified; E03.8 Other specified hypothyroidism; I12.9 Hypertensive chronic kidney disease with stage 1 through stage 4 chronic kidney disease, or unspecified chronic kidney disease; E87.1 Hypo-osmolality and hyponatremia; E86.1 Hypovolemia; Z20.822 Contact with and (suspected) exposure to COVID-19
CPT/HCPCS: 36415; 36600; 71045; 74177; 80048; 80053; 80076; 80307; 80320; 81001; 82270; 82607; 82728; 82746; 82805; 83540; 83550; 83605; 83735; 84439; 84443; 84481; 85025; 85048; 85610; 85730; 86850; 86900; 86901; 87045; 87081; 87177; 87426; 87427; 87493; 93005; 96365; G0378; J2405; J3490

== ENCOUNTER 2025-05-07 09:44 | Outpatient (CLI) | payer OTHER ==
[~2025-05-07 09:44] MED LIST changes: +SACC250C PO
[2025-05-07 10:16] LABS: Hematocrit 30.2 % (36.0-46.0); Hemoglobin 10.3 g/dL (12.2-16.2); Nucleated Red Blood Cells % 0.0 %
[2025-05-07 10:18] LABS: Mean Corpuscular Hemoglobin 33.0 pg (28.0-32.0); Mean Corpuscular Volume 97.3 fL (80.0-100.0)
[2025-05-07 10:59] LABS: Alanine Aminotransferase 18 U/L (7-40); Albumin 4.3 g/dL (3.2-4.8); Anion Gap 12 (5-15); BUN/Creatinine Ratio 8.6 (10.0-20.0); Blood Urea Nitrogen 13 mg/dL (9-23); Calcium 10.4 mg/dL (8.7-10.4); Carbon Dioxide 22 mmol/L (20-31); Chloride 101 mmol/L (98-107); Glucose 99 mg/dL (74-106); Total Protein 7.3 g/dL (5.7-8.2); Triglycerides 135 mg/dL (< 150)
[2025-05-07 11:00] LABS: Bilirubin, Total 0.3 mg/dL (0.2-1.0)
[2025-05-07 11:01] LABS: Alkaline Phosphatase 143 U/L (46-116); Cholesterol 222 mg/dL (< 200); HDL Cholesterol 83 mg/dL (40-59); Potassium 5.4 mmol/L (3.5-5.1); Sodium 135 mmol/L (136-145)
[2025-05-07 13:10] LABS: Free T4 (Free Thyroxine) 1.19 ng/dL (0.89-1.76)
== END 2025-05-07 17:00 | disposition home or self-care (01) ==
LOC: LAB 09:44
PROVIDERS: ATTEND Nurse Practitioner Family
DX: I10 Essential (primary) hypertension (principal); Z00.01 Encounter for general adult medical examination with abnormal findings; Z94.4 Liver transplant status
CPT/HCPCS: 36415; 80053; 80061; 84439; 84443; 84480; 85025